=== PATIENT | male | born 1955 | race Caucasian/White ===

== ENCOUNTER 2020-02-11 18:39 | Inpatient (IN) ==
[2020-02-11 20:21] LABS: INR 1.9; Prothrombin Time 21.6 Seconds (9.4-12.1)
[2020-02-11 20:24] LABS: Activated Partial Thrombo Time 39.1 Seconds (26.0-36.0)
[2020-02-11 20:34] LABS: Calcium 8.1 mg/dL (8.6-10.3)
[2020-02-11 20:39] LABS: Albumin 3.8 g/dL (3.5-5.7); Albumin/Globulin Ratio 1.1 (1.1-2.2); Bilirubin,Direct 0.1 mg/dL (0.0-0.2); Bilirubin,Indirect 0.3 mg/dL (0.0-1.0); Bilirubin,Total 0.4 mg/dL (0.3-1.0); Globulin 3.5 g/dL (2.4-3.5); Total Protein 7.3 g/dL (6.4-8.9); Troponin I 0.03 ng/mL (< 0.04)
[2020-02-11] MEDS: 0.9 % Sodium Chloride 1,000 ML IVC SCH (21:06)
[2020-02-11 21:18] LABS: Basophils % 0.2 %; Eosinophils # 0.1 K/mcL (0.0-0.6); Eosinophils % 2.1 %; Immature Granulocytes % 1.4 % (0-4); Lymphocytes # 1.1 K/mcL (0.6-4.6); Lymphocytes % 19.6 %; Mean Corpuscular HGB Conc 29.2 g/dL (31.6-35.5); Mean Corpuscular Hemoglobin 23.5 pg (28.0-33.3); Mean Corpuscular Volume 80.4 fL (83.0-100.0); Mean Platelet Volume 10.3 fL (9.4-12.4); Monocytes # 0.8 K/mcL (0.0-1.3); Monocytes % 14.4 %; Neutrophils # 3.6 K/mcL (1.6-8.9); Nucleated Red Blood Cells 0.3 /100 WBC (0); Platelet Count 237 K/mcL (140-400); Red Blood Count 1.79 M/mcL (4.19-5.50); Segmented Neutrophils % 62.3 %; White Blood Count 5.8 K/mcL (4.3-11.1)
[2020-02-11 21:20] LABS: Hematocrit 14.4 % (37.5-50.1); Hemoglobin 4.2 g/dL (12.9-16.9)
[2020-02-11] MEDS ORDERED: 0.9 % Sodium Chloride 500 ML ONE (22:40)
[2020-02-11] MEDS ORDERED: Pantoprazole 80 MG in 0.9 % Sodium Chloride 50 ML IVPB ONE (23:02)
[2020-02-12] MEDS ORDERED: Acetaminophen 325 MG TABLET PO PRN (01:16)
[2020-02-12] MEDS ORDERED: Ondansetron ODT 4 MG TAB.RAPDIS SL PRN (01:16)
[2020-02-12] MEDS ORDERED: Naloxone 0.4 MG/ML INJ IVP PRN (01:16)
[2020-02-12] MEDS ORDERED: *HR* Dextrose 50 % in Water (Vial) 50 ML VIAL IVP PRN (01:30)
[2020-02-12] MEDS ORDERED: Dextrose Gel 15 GM/37.5 ML TUBE PO PRN ×2 (01:30)
[2020-02-12] MEDS ORDERED: 0.9 % Sodium Chloride w KCl 20 MEQ/1,000 ML MLS IVC SCH (01:30)
[2020-02-12] MEDS ORDERED: D5% in Water 1,000 ML IVC PRN (01:30)
[2020-02-12] MEDS ORDERED: 0.9 % Sodium Chloride 250 ML ONE (02:51)
[2020-02-12] MEDS ORDERED: Pantoprazole 40 MG VIAL IVP SCH (06:00)
[2020-02-12] MEDS ORDERED: 0.9 % Sodium Chloride 1,000 ML IVC SCH (06:15)
[2020-02-12] MEDS: Insulin LISPRO 300 UNITS/3 ML VIAL SUBQ SCH ×3 (07:33→17:34)
[2020-02-12 07:56] LABS: Activated Partial Thrombo Time 37.5 Seconds (26.0-36.0)
[2020-02-12 07:57] LABS: INR 1.9; Prothrombin Time 21.4 Seconds (9.4-12.1)
[2020-02-12 08:04] LABS: Magnesium 1.3 mg/dL (1.6-2.6); Phosphorous 4.6 mg/dL (2.7-4.5); Potassium 4.8 mEq/L (3.5-5.1)
[2020-02-12 08:07] LABS: Hematocrit 18.3 % (37.5-50.1); Mean Corpuscular HGB Conc 29.5 g/dL (31.6-35.5); Mean Corpuscular Hemoglobin 24.2 pg (28.0-33.3); Mean Corpuscular Volume 82.1 fL (83.0-100.0); Mean Platelet Volume 9.8 fL (9.4-12.4); Neutrophils # 2.5 K/mcL (1.6-8.9); Platelet Count 226 K/mcL (140-400); Red Blood Count 2.23 M/mcL (4.19-5.50); Red Cell Distribution Width 17.8 % (11.5-14.5); White Blood Count 4.4 K/mcL (4.3-11.1)
[2020-02-12 08:15] LABS: Hemoglobin 5.4 g/dL (12.9-16.9)
[2020-02-12] MEDS: Pantoprazole 40 MG VIAL IVP SCH ×2 (08:20→17:38)
[2020-02-12] MEDS ORDERED: Bumetanide 1 MG/4 ML VIAL IVP ONE (08:48)
[2020-02-12] MEDS ORDERED: Perflutren Lipid Microsphere 1.3 ML in 0.9 % Sodium Chloride 8.7 ML IVP PRN (08:54)
[2020-02-12 09:02] LABS: Basophils # 0.1 K/mcL (0.0-0.2); Eosinophils # 0.3 K/mcL (0.0-0.6); Lymphocytes # 0.8 K/mcL (0.6-4.6); Monocytes # 0.8 K/mcL (0.0-1.3); Platelet Estimate Normal (Normal)
[2020-02-12 09:03] LABS: Anisocytosis 2+ (Not Present); Hypochromasia Present (Not Present)
[2020-02-12 10:17] LABS: Bilirubin,Urine Negative (Negative); Blood,Urine Negative (Negative); Clarity,Urine Clear (Clear); Color,Urine Light-Yellow (Yellow); Glucose,Urine (UA) Normal (Normal); Ketones,Urine Negative (Negative); Leukocyte Esterase,Urine Negative (Negative); Nitrite,Urine Negative (Negative); Protein,Urine Negative (Neg-Trace); Specific Gravity,Urine 1.011 (1.010-1.025); Urobilinogen,Urine Normal (Normal)
[2020-02-12] MEDS ORDERED: 0.9 % Sodium Chloride 500 ML ONE (10:26)
[2020-02-12 11:51] LABS: Uric Acid 13.1 mg/dL (2.3-7.6)
[2020-02-12] MEDS ORDERED: *HR* OxyCODONE/APAP 5/325 TABLET PO ONE (12:17)
[2020-02-12 13:50] LABS: Protein/Creatinine Ratio,Urine 0.13 mg/mg (0.00-0.20); Sodium, Urine 22.8 mEq/L
[2020-02-12] MEDS ORDERED: Lidocaine -MPF 2% 2 ML VIAL ONE (13:59)
[2020-02-12 15:47] LABS: Albumin 3.6 g/dL (3.5-5.7); Albumin/Globulin Ratio 1.1 (1.1-2.2); Bilirubin,Total 1.1 mg/dL (0.3-1.0); Calcium 8.3 mg/dL (8.6-10.3); Globulin 3.2 g/dL (2.4-3.5); Potassium 4.5 mEq/L (3.5-5.1); Total Protein 6.8 g/dL (6.4-8.9)
[2020-02-12 15:49] LABS: Hematocrit 19.7 % (37.5-50.1)
[2020-02-12 16:01] LABS: Hemoglobin 5.9 g/dL (12.9-16.9)
[2020-02-12 16:13] LABS: Hepatitis B Surface Antigen Nonreactive (Nonreactive)
[2020-02-12 16:44] LABS: Hepatitis B Core IgM Nonreactive (Nonreactive)
[2020-02-12 16:46] LABS: Hepatitis A Antibody IgM Nonreactive (Nonreactive)
[2020-02-12 16:47] LABS: Hepatitis C Virus Antibody Nonreactive (Nonreactive)
[2020-02-12] MEDS: Metoprolol XL (24 HR) Succ 50 MG TAB.ER.24H PO SCH (20:22)
[2020-02-12] MEDS: *HR* OxyCODONE/APAP 5/325 TABLET PO PRN (20:22)
[2020-02-12] MEDS: Gabapentin 300 MG CAPSULE PO SCH (20:23)
[2020-02-12] MEDS: polyethylene glycoL 3350 17 GM POWD.PACK PO SCH (20:23)
[2020-02-13 02:51] LABS: Basophils % 0.4 %; Eosinophils # 0.2 K/mcL (0.0-0.6); Hematocrit 20.1 % (37.5-50.1); Hemoglobin 6.1 g/dL (12.9-16.9); Immature Granulocytes % 0.7 % (0-4); Lymphocytes # 0.9 K/mcL (0.6-4.6); Lymphocytes % 19.8 %; Mean Corpuscular HGB Conc 30.3 g/dL (31.6-35.5); Mean Corpuscular Hemoglobin 25.7 pg (28.0-33.3); Mean Corpuscular Volume 84.8 fL (83.0-100.0); Mean Platelet Volume 9.3 fL (9.4-12.4); Monocytes # 0.9 K/mcL (0.0-1.3); Monocytes % 18.9 %; Neutrophils # 2.6 K/mcL (1.6-8.9); Nucleated Red Blood Cells 0.4 /100 WBC (0); Platelet Count 214 K/mcL (140-400); Red Blood Count 2.37 M/mcL (4.19-5.50); Red Cell Distribution Width 17.9 % (11.5-14.5); Segmented Neutrophils % 56.2 %; White Blood Count 4.6 K/mcL (4.3-11.1)
[2020-02-13 03:09] LABS: Calcium 8.3 mg/dL (8.6-10.3); Magnesium 1.6 mg/dL (1.6-2.6); Phosphorous 3.8 mg/dL (2.7-4.5); Potassium 4.2 mEq/L (3.5-5.1)
[2020-02-13 03:41] LABS: Hypochromasia Present (Not Present); Platelet Estimate Normal (Normal)
[2020-02-13] MEDS ORDERED: 0.9 % Sodium Chloride 250 ML ONE (03:46)
[2020-02-13] MEDS: Sucralfate 1 GM TABLET PO SCH ×5 (05:50→21:58)
[2020-02-13] MEDS: Insulin LISPRO 300 UNITS/3 ML VIAL SUBQ SCH ×3 (08:30→18:02)
[2020-02-13] MEDS: Metoprolol XL (24 HR) Succ 50 MG TAB.ER.24H PO SCH (08:48)
[2020-02-13] MEDS: Gabapentin 300 MG CAPSULE PO SCH ×3 (08:48→20:16)
[2020-02-13] MEDS: Pantoprazole 40 MG VIAL IVP SCH ×2 (08:49→18:03)
[2020-02-13] MEDS: polyethylene glycoL 3350 17 GM POWD.PACK PO SCH ×2 (08:49→20:17)
[2020-02-13] MEDS ORDERED: Bumetanide 1 MG TABLET PO SCH (09:00)
[2020-02-13] MEDS ORDERED: amLODIPine 5 MG TABLET PO SCH (09:00)
[2020-02-13] MEDS ORDERED: Ferumoxytol 510 MG in 0.9 % Sodium Chloride 100 ML IVPB ONE (10:49)
[2020-02-13] MEDS ORDERED: Albumin 25% 25gram/100mL 25 GM/100 ML IV.SOLN IVPB SCH (11:00)
[2020-02-13] MEDS ORDERED: Ondansetron 4 MG/2 ML VIAL ONE (12:57)
[2020-02-13] MEDS ORDERED: Furosemide 40 MG/4 ML VIAL ONE (12:58)
[2020-02-13] MEDS ORDERED: Bumetanide 1 MG/4 ML VIAL IVP ONE (13:00)
[2020-02-13 16:12] LABS: Hematocrit 25.6 % (37.5-50.1); Hemoglobin 7.7 g/dL (12.9-16.9)
[2020-02-13] MEDS: Bumetanide 1 MG/4 ML VIAL IVP SCH (18:02)
[2020-02-13] MEDS: *HR* OxyCODONE/APAP 5/325 TABLET PO PRN (18:32)
[2020-02-14 01:09] LABS: Basophils % 0.7 %; Eosinophils # 0.2 K/mcL (0.0-0.6); Eosinophils % 3.5 %; Hematocrit 23.8 % (37.5-50.1); Hemoglobin 7.3 g/dL (12.9-16.9); Immature Granulocytes % 0.9 % (0-4); Lymphocytes # 0.6 K/mcL (0.6-4.6); Lymphocytes % 13.1 %; Mean Corpuscular HGB Conc 30.7 g/dL (31.6-35.5); Mean Corpuscular Hemoglobin 25.7 pg (28.0-33.3); Mean Corpuscular Volume 83.8 fL (83.0-100.0); Mean Platelet Volume 10.1 fL (9.4-12.4); Monocytes # 0.7 K/mcL (0.0-1.3); Monocytes % 14.2 %; Neutrophils # 3.1 K/mcL (1.6-8.9); Platelet Count 194 K/mcL (140-400); Red Blood Count 2.84 M/mcL (4.19-5.50); Red Cell Distribution Width 17.5 % (11.5-14.5); Segmented Neutrophils % 67.6 %; White Blood Count 4.6 K/mcL (4.3-11.1)
[2020-02-14 01:11] LABS: Calcium 8.1 mg/dL (8.6-10.3); Magnesium 1.6 mg/dL (1.6-2.6); Phosphorous 3.6 mg/dL (2.7-4.5); Potassium 4.5 mEq/L (3.5-5.1)
[2020-02-14] MEDS: 0.9 % Sodium Chloride 1,000 ML IVC SCH (05:07)
[2020-02-14] MEDS: Pantoprazole 40 MG VIAL IVP SCH ×2 (05:12→17:12)
[2020-02-14] MEDS: Insulin LISPRO 300 UNITS/3 ML VIAL SUBQ SCH ×3 (08:36→17:13)
[2020-02-14] MEDS: Bumetanide 1 MG/4 ML VIAL IVP SCH ×2 (08:36→17:12)
[2020-02-14] MEDS: Sucralfate 1 GM TABLET PO SCH ×4 (08:36→20:44)
[2020-02-14] MEDS: polyethylene glycoL 3350 17 GM POWD.PACK PO SCH ×2 (08:37→20:46)
[2020-02-14] MEDS: Gabapentin 300 MG CAPSULE PO SCH ×3 (08:37→20:44)
[2020-02-14] MEDS: *HR* OxyCODONE/APAP 5/325 TABLET PO PRN ×2 (08:49→17:12)
[2020-02-14] MEDS: amLODIPine 5 MG TABLET PO SCH (10:56)
[2020-02-14] MEDS ORDERED: 0.9 % Sodium Chloride 1,000 ML ONE (11:20)
[2020-02-14] MEDS ORDERED: Tolvaptan 15 MG TABLET PO ONE (12:46)
[2020-02-14 15:57] LABS: Hematocrit 25.6 % (37.5-50.1); Hemoglobin 7.8 g/dL (12.9-16.9)
[2020-02-15] MEDS: Pantoprazole 40 MG VIAL IVP SCH (05:30)
[2020-02-15 08:15] VITALS: BP 129/61
[2020-02-15 08:32] LABS: Basophils % 0.4 %; Eosinophils # 0.2 K/mcL (0.0-0.6); Eosinophils % 2.9 %; Hematocrit 25.5 % (37.5-50.1); Hemoglobin 7.6 g/dL (12.9-16.9); Immature Granulocytes % 0.4 % (0-4); Lymphocytes # 0.6 K/mcL (0.6-4.6); Mean Corpuscular HGB Conc 29.8 g/dL (31.6-35.5); Mean Corpuscular Hemoglobin 25.6 pg (28.0-33.3); Mean Corpuscular Volume 85.9 fL (83.0-100.0); Mean Platelet Volume 9.1 fL (9.4-12.4); Monocytes # 0.9 K/mcL (0.0-1.3); Monocytes % 16.2 %; Neutrophils # 3.9 K/mcL (1.6-8.9); Platelet Count 166 K/mcL (140-400); Red Blood Count 2.97 M/mcL (4.19-5.50); Red Cell Distribution Width 18.9 % (11.5-14.5); Segmented Neutrophils % 70.1 %; White Blood Count 5.5 K/mcL (4.3-11.1)
[2020-02-15 08:37] LABS: Calcium 8.5 mg/dL (8.6-10.3); Magnesium 1.6 mg/dL (1.6-2.6); Phosphorous 3.1 mg/dL (2.7-4.5); Potassium 4.2 mEq/L (3.5-5.1)
[2020-02-15] MEDS: Insulin LISPRO 300 UNITS/3 ML VIAL SUBQ SCH ×2 (08:40→11:36)
[2020-02-15] MEDS: amLODIPine 5 MG TABLET PO SCH (08:49)
[2020-02-15] MEDS: *HR* OxyCODONE/APAP 5/325 TABLET PO PRN (08:49)
[2020-02-15] MEDS: Sucralfate 1 GM TABLET PO SCH ×2 (08:49→11:35)
[2020-02-15] MEDS: Gabapentin 300 MG CAPSULE PO SCH (08:49)
[2020-02-15] MEDS: Bumetanide 1 MG/4 ML VIAL IVP SCH (08:50)
[2020-02-15] MEDS: polyethylene glycoL 3350 17 GM POWD.PACK PO SCH (08:51)
[2020-02-16 06:24] LABS: ANA IgG by ELISA NONE DETECTED (None Detected)
[2020-02-16 06:28] LABS: F-Actin (sm muscle) Ab IgG 20 Units (0-19)
[2020-02-16 06:30] LABS: Serine Protease-3 Antibody 18 AU/mL (0-19)
[2020-02-17 10:17] LABS: Smooth Muscle Ab Titer IgG 1:20 (<1:20)
== END 2020-02-15 12:06 | disposition home or self-care (01) | DRG 378 ==
LOC: 3ANU 18:39 → EMEROOARM 18:39 → 3ANU 02-12 00:06
PROVIDERS: ADMIT Student in an Organized Health Care Education/Training Program; ATTEND Student in an Organized Health Care Education/Training Program
PROC: ENDOEBX (2020-02-12 08:30)

== ENCOUNTER 2020-03-09 16:41 | Inpatient (IN) ==
[2020-03-09] MEDS ORDERED: 0.9 % Sodium Chloride 1,000 ML IVC ONE (17:28)
[2020-03-09] MEDS ORDERED: Pantoprazole 40 MG VIAL IVP ONE (17:28)
[2020-03-09] MEDS ORDERED: Isovue-370 500 ML BOTTLE IVP ONE (17:29)
[2020-03-09 18:36] LABS: Basophils % 0.4 %; Eosinophils # 0.2 K/mcL (0.0-0.6); Eosinophils % 3.3 %; Hematocrit 21.6 % (37.5-50.1); Hemoglobin 6.2 g/dL (12.9-16.9); Immature Granulocytes % 0.4 % (0-4); Lymphocytes # 0.8 K/mcL (0.6-4.6); Mean Corpuscular HGB Conc 28.7 g/dL (31.6-35.5); Mean Corpuscular Hemoglobin 26.3 pg (28.0-33.3); Mean Corpuscular Volume 91.5 fL (83.0-100.0); Mean Platelet Volume 9.8 fL (9.4-12.4); Monocytes # 0.8 K/mcL (0.0-1.3); Monocytes % 14.4 %; Neutrophils # 3.5 K/mcL (1.6-8.9); Platelet Count 250 K/mcL (140-400); Red Blood Count 2.36 M/mcL (4.19-5.50); Segmented Neutrophils % 66.5 %; White Blood Count 5.2 K/mcL (4.3-11.1)
[2020-03-09 18:44] LABS: Alanine Aminotransferase 11 Units/L (7-52); Albumin 3.7 g/dL (3.5-5.7); Albumin/Globulin Ratio 0.9 (1.1-2.2); Alkaline Phosphatase 85 Units/L (34-104); Aspartate Amino Transferase 24 Units/L (13-39); BUN/Creatinine Ratio 17 (6-26); Bilirubin,Total 0.4 mg/dL (0.3-1.0); Blood Urea Nitrogen 27 mg/dL (8-23); Calcium 8.3 mg/dL (8.6-10.3); Carbon Dioxide 29 mEq/L (23-29); Chloride 98 mEq/L (98-107); Glucose 94 mg/dL (70-105); Lipase 23 Units/L (11-82); Osmolality,Calculated 291 (280-300); Potassium 4.5 mEq/L (3.5-5.1); Sodium 138 mEq/L (136-145); Total Protein 7.7 g/dL (6.4-8.9); Troponin I < 0.03 ng/mL (< 0.04); eGFR For African Americans 53 (> 60); eGFR For Non-African Americans 44 (> 60)
[2020-03-09 18:55] LABS: Hypochromasia Present (Not Present); Platelet Estimate Normal (Normal)
[2020-03-09 20:05] LABS: INR 1.3; Prothrombin Time 14.8 Seconds (9.4-12.1)
[2020-03-09 20:10] LABS: Activated Partial Thrombo Time 33.3 Seconds (26.0-36.0)
[2020-03-09] MEDS ORDERED: 0.9 % Sodium Chloride 250 ML ONE (20:47)
[2020-03-09] MEDS ORDERED: Furosemide 20 MG/2 ML VIAL IVP ONE (22:18)
[2020-03-09] MEDS ORDERED: Ondansetron 4 MG/2 ML VIAL IVP PRN (22:36)
[2020-03-09] MEDS ORDERED: Naloxone 0.4 MG/ML INJ IVP PRN (22:36)
[2020-03-09 23:20] LABS: Influenza A PCR Negative (Negative); Influenza B PCR Negative (Negative); Resp. Syncytial Virus PCR Negative (Negative)
[2020-03-09 23:21] LABS: SARS-CoV-2 by PCR (In House) Negative (Negative)
[2020-03-10] MEDS ORDERED: D5% in Water 1,000 ML IVC PRN (02:01)
[2020-03-10] MEDS ORDERED: Dextrose Gel 15 GM/37.5 ML TUBE PO PRN ×2 (02:01)
[2020-03-10] MEDS ORDERED: *HR* Dextrose 50 % in Water (Vial) 50 ML VIAL IVP PRN (02:01)
[2020-03-10 02:13] LABS: Mean Platelet Volume 9.4 fL (9.4-12.4)
[2020-03-10 02:14] LABS: Basophils % 0.8 %; Eosinophils # 0.2 K/mcL (0.0-0.6); Eosinophils % 3.7 %; Hematocrit 21.8 % (37.5-50.1); Hemoglobin 6.5 g/dL (12.9-16.9); Immature Granulocytes % 1.2 % (0-4); Lymphocytes % 15.2 %; Mean Corpuscular HGB Conc 29.8 g/dL (31.6-35.5); Mean Corpuscular Hemoglobin 26.4 pg (28.0-33.3); Mean Corpuscular Volume 88.6 fL (83.0-100.0); Monocytes # 0.9 K/mcL (0.0-1.3); Monocytes % 17.6 %; Platelet Count 237 K/mcL (140-400); Red Blood Count 2.46 M/mcL (4.19-5.50); Red Cell Distribution Width 18.4 % (11.5-14.5); Segmented Neutrophils % 61.5 %; White Blood Count 4.9 K/mcL (4.3-11.1)
[2020-03-10 02:18] LABS: Lymphocytes # 0.7 K/mcL (0.6-4.6)
[2020-03-10 02:28] LABS: Alanine Aminotransferase 12 Units/L (7-52); Albumin 3.6 g/dL (3.5-5.7); Albumin/Globulin Ratio 0.9 (1.1-2.2); Alkaline Phosphatase 92 Units/L (34-104); Aspartate Amino Transferase 20 Units/L (13-39); BUN/Creatinine Ratio 16 (6-26); Bilirubin,Total 0.5 mg/dL (0.3-1.0); Blood Urea Nitrogen 27 mg/dL (8-23); Calcium 8.4 mg/dL (8.6-10.3); Carbon Dioxide 31 mEq/L (23-29); Chloride 99 mEq/L (98-107); Globulin 3.9 g/dL (2.4-3.5); Glucose 103 mg/dL (70-105); Osmolality,Calculated 293 (280-300); Potassium 4.1 mEq/L (3.5-5.1); Sodium 139 mEq/L (136-145); Total Protein 7.5 g/dL (6.4-8.9); Troponin I < 0.03 ng/mL (< 0.04); eGFR For African Americans 49 (> 60); eGFR For Non-African Americans 40 (> 60)
[2020-03-10] MEDS: Furosemide 40 MG/4 ML VIAL IVP SCH ×3 (03:08→16:55)
[2020-03-10] MEDS ORDERED: 0.9 % Sodium Chloride 250 ML ONE (03:48)
[2020-03-10 04:59] LABS: Protein/Creatinine Ratio,Urine 0.42 mg/mg (0.00-0.20); Sodium, Urine 34.4 mEq/L
[2020-03-10] MEDS: Insulin LISPRO 300 UNITS/3 ML VIAL SUBQ SCH ×3 (05:21→17:55)
[2020-03-10] MEDS: Pantoprazole 40 MG VIAL IVP SCH ×2 (05:22→16:57)
[2020-03-10] MEDS ORDERED: *HR* Heparin 5,000 UNIT/ML VIAL SQ SCH (06:00)
[2020-03-10] MEDS ORDERED: 0.9 % Sodium Chloride 250 ML IVC SCH (08:15)
[2020-03-10] MEDS: *HR* OxyCODONE/APAP 5/325 TABLET PO PRN ×2 (10:14→22:37)
[2020-03-10] MEDS: amLODIPine 5 MG TABLET PO SCH (10:16)
[2020-03-10] MEDS: Metoprolol XL (24 HR) Succ 50 MG TAB.ER.24H PO SCH ×2 (10:18→22:35)
[2020-03-10] MEDS: Sucralfate 1 GM TABLET PO SCH ×3 (11:33→22:34)
[2020-03-10 13:39] LABS: % Iron Saturation 4 % (20-55); Ferritin 43 ng/mL (20-250); Iron 17 mcg/dL (65-175); Transferrin 297 mg/dL (203-362)
[2020-03-10] MEDS ORDERED: Iron Sucrose Complex 250 MG in 0.9 % Sodium Chloride 250 ML IVPB SCH (14:45)
[2020-03-10] MEDS ORDERED: Nitroglycerin 0.4 MG TAB.SUBL SL PRN (20:47)
[2020-03-11] MEDS: Insulin LISPRO 300 UNITS/3 ML VIAL SUBQ SCH ×4 (01:55→18:14)
[2020-03-11] MEDS: Pantoprazole 40 MG VIAL IVP SCH ×2 (06:31→16:23)
[2020-03-11] MEDS: *HR* OxyCODONE/APAP 5/325 TABLET PO PRN (10:00)
[2020-03-11] MEDS: Metoprolol XL (24 HR) Succ 50 MG TAB.ER.24H PO SCH (10:01)
[2020-03-11] MEDS: amLODIPine 5 MG TABLET PO SCH (10:01)
[2020-03-11] MEDS: Furosemide 40 MG/4 ML VIAL IVP SCH ×2 (10:03→16:24)
[2020-03-11] MEDS: Sucralfate 1 GM TABLET PO SCH ×3 (10:03→16:23)
[2020-03-11 10:18] LABS: Basophils % 0.8 %; Eosinophils # 0.2 K/mcL (0.0-0.6); Eosinophils % 4.8 %; Hematocrit 28.2 % (37.5-50.1); Immature Granulocytes % 0.3 % (0-4); Lymphocytes # 0.5 K/mcL (0.6-4.6); Lymphocytes % 12.8 %; Mean Corpuscular HGB Conc 30.5 g/dL (31.6-35.5); Mean Corpuscular Hemoglobin 26.9 pg (28.0-33.3); Mean Corpuscular Volume 88.1 fL (83.0-100.0); Mean Platelet Volume 9.5 fL (9.4-12.4); Monocytes # 0.6 K/mcL (0.0-1.3); Monocytes % 13.8 %; Neutrophils # 2.7 K/mcL (1.6-8.9); Platelet Count 233 K/mcL (140-400); Red Cell Distribution Width 18.5 % (11.5-14.5); Segmented Neutrophils % 67.5 %
[2020-03-11 10:23] LABS: Hemoglobin 8.6 g/dL (12.9-16.9)
[2020-03-11 10:31] LABS: BUN/Creatinine Ratio 16 (6-26); Blood Urea Nitrogen 23 mg/dL (8-23); Calcium 8.9 mg/dL (8.6-10.3); Carbon Dioxide 33 mEq/L (23-29); Chloride 98 mEq/L (98-107); Glucose 106 mg/dL (70-105); Osmolality,Calculated 290 (280-300); Sodium 138 mEq/L (136-145); eGFR For African Americans > 60 (> 60); eGFR For Non-African Americans 50 (> 60)
[2020-03-11 10:55] LABS: Folate 7.8 ng/mL (3.0-16.0)
[2020-03-11 16:53] LABS: Hematocrit 27.9 % (37.5-50.1); Hemoglobin 8.4 g/dL (12.9-16.9)
[2020-03-12 01:11] LABS: Hematocrit 27.7 % (37.5-50.1); Hemoglobin 8.2 g/dL (12.9-16.9); Mean Corpuscular HGB Conc 29.6 g/dL (31.6-35.5); Mean Corpuscular Volume 87.9 fL (83.0-100.0); Mean Platelet Volume 9.3 fL (9.4-12.4); Platelet Count 208 K/mcL (140-400); Red Blood Count 3.15 M/mcL (4.19-5.50); Red Cell Distribution Width 18.3 % (11.5-14.5); White Blood Count 3.9 K/mcL (4.3-11.1)
[2020-03-12 01:26] LABS: BUN/Creatinine Ratio 17 (6-26); Blood Urea Nitrogen 23 mg/dL (8-23); Calcium 8.4 mg/dL (8.6-10.3); Carbon Dioxide 33 mEq/L (23-29); Chloride 99 mEq/L (98-107); Glucose 134 mg/dL (70-105); Osmolality,Calculated 292 (280-300); Potassium 3.8 mEq/L (3.5-5.1); Sodium 138 mEq/L (136-145); eGFR For African Americans > 60 (> 60); eGFR For Non-African Americans 52 (> 60)
[2020-03-12] MEDS: Metoprolol XL (24 HR) Succ 50 MG TAB.ER.24H PO SCH ×3 (04:02→20:45)
[2020-03-12] MEDS: Sucralfate 1 GM TABLET PO SCH ×5 (04:02→20:45)
[2020-03-12] MEDS: Insulin LISPRO 300 UNITS/3 ML VIAL SUBQ SCH ×3 (04:03→13:07)
[2020-03-12] MEDS: Pantoprazole 40 MG VIAL IVP SCH (05:44)
[2020-03-12] MEDS: amLODIPine 5 MG TABLET PO SCH (08:17)
[2020-03-12] MEDS: Furosemide 40 MG/4 ML VIAL IVP SCH ×2 (08:18→17:13)
[2020-03-12] MEDS: *HR* OxyCODONE/APAP 5/325 TABLET PO PRN ×2 (08:30→20:50)
[2020-03-12] MEDS ORDERED: 0.9 % Sodium Chloride 1,000 ML IVC SCH (14:30)
[2020-03-12] MEDS: Spironolactone 25 MG TABLET PO SCH (15:30)
[2020-03-12] MEDS ORDERED: *HR* Propofol 200 MG/20 ML VIAL IVP ONE (17:01)
[2020-03-12] MEDS ORDERED: Lidocaine -MPF 2% 5 ML VIAL SQ ONE (17:01)
[2020-03-12] MEDS ORDERED: Insulin LISPRO 300 UNITS/3 ML VIAL SUBQ SCH (21:00)
[2020-03-13 05:37] LABS: Hematocrit 27.9 % (37.5-50.1); Hemoglobin 8.2 g/dL (12.9-16.9); Mean Corpuscular HGB Conc 29.4 g/dL (31.6-35.5); Mean Corpuscular Hemoglobin 26.3 pg (28.0-33.3); Mean Corpuscular Volume 89.4 fL (83.0-100.0); Mean Platelet Volume 9.3 fL (9.4-12.4); Platelet Count 212 K/mcL (140-400); Red Blood Count 3.12 M/mcL (4.19-5.50); Red Cell Distribution Width 18.2 % (11.5-14.5); White Blood Count 3.9 K/mcL (4.3-11.1)
[2020-03-13 05:56] LABS: BUN/Creatinine Ratio 14 (6-26); Blood Urea Nitrogen 18 mg/dL (8-23); Calcium 8.6 mg/dL (8.6-10.3); Carbon Dioxide 33 mEq/L (23-29); Chloride 99 mEq/L (98-107); Glucose 106 mg/dL (70-105); Osmolality,Calculated 288 (280-300); Potassium 3.7 mEq/L (3.5-5.1); Sodium 138 mEq/L (136-145); eGFR For African Americans > 60 (> 60); eGFR For Non-African Americans 57 (> 60)
[2020-03-13 07:40] VITALS: BP 123/73
[2020-03-13] MEDS: Insulin LISPRO 300 UNITS/3 ML VIAL SUBQ SCH ×2 (07:51→12:22)
[2020-03-13] MEDS: amLODIPine 5 MG TABLET PO SCH (07:53)
[2020-03-13] MEDS: Metoprolol XL (24 HR) Succ 50 MG TAB.ER.24H PO SCH (07:53)
[2020-03-13] MEDS: Spironolactone 25 MG TABLET PO SCH (07:53)
[2020-03-13] MEDS: Sucralfate 1 GM TABLET PO SCH ×3 (07:53→15:52)
[2020-03-13] MEDS: Furosemide 40 MG/4 ML VIAL IVP SCH (07:54)
[2020-03-13] MEDS: *HR* OxyCODONE/APAP 5/325 TABLET PO PRN (08:04)
== END 2020-03-13 19:30 | disposition home health service (06) | DRG 291 ==
LOC: 3ANU 16:41 → EMEROOARM 16:41 → SUATTDRO 23:23 → 3ANU 03-10 00:20
PROVIDERS: ADMIT Internal Medicine; ATTEND Family Medicine

== ENCOUNTER 2020-03-20 17:51 | Inpatient (IN) ==
[2020-03-20] MEDS ORDERED: Furosemide 40 MG/4 ML VIAL IVP ONE (18:27)
[2020-03-20 18:46] LABS: Hematocrit 26.2 % (37.5-50.1); Hemoglobin 7.3 g/dL (12.9-16.9); Mean Corpuscular HGB Conc 27.9 g/dL (31.6-35.5)
[2020-03-20 18:48] LABS: Basophils % 0.7 %; Eosinophils # 0.2 K/mcL (0.0-0.6); Eosinophils % 5.3 %; Immature Granulocytes % 0.2 % (0-4); Immature Platelets 3.6 % (1.1-6.1); Lymphocytes # 0.6 K/mcL (0.6-4.6); Lymphocytes % 14.7 %; Mean Corpuscular Hemoglobin 25.8 pg (28.0-33.3); Mean Corpuscular Volume 92.6 fL (83.0-100.0); Mean Platelet Volume 10.5 fL (9.4-12.4); Monocytes # 0.6 K/mcL (0.0-1.3); Monocytes % 14.7 %; Neutrophils # 2.7 K/mcL (1.6-8.9); Platelet Count 129 K/mcL (140-400); Red Blood Count 2.83 M/mcL (4.19-5.50); Red Cell Distribution Width 18.7 % (11.5-14.5); Segmented Neutrophils % 64.4 %; White Blood Count 4.2 K/mcL (4.3-11.1)
[2020-03-20 19:27] LABS: Hypochromasia Present (Not Present)
[2020-03-20 19:28] LABS: Platelet Estimate Slight Decrease (Normal)
[2020-03-20] MEDS ORDERED: *HR* Dextrose 50 % in Water (Vial) 50 ML VIAL IVP PRN (21:00)
[2020-03-20] MEDS ORDERED: Naloxone 0.4 MG/ML INJ IVP PRN (21:00)
[2020-03-20] MEDS ORDERED: Dextrose Gel 15 GM/37.5 ML TUBE PO PRN ×2 (21:00)
[2020-03-20] MEDS ORDERED: D5% in Water 1,000 ML IVC PRN (21:00)
[2020-03-20] MEDS ORDERED: Acetaminophen 325 MG TABLET PO PRN (21:00)
[2020-03-20] MEDS: Gabapentin 300 MG CAPSULE PO SCH (22:09)
[2020-03-20] MEDS: Sucralfate 1 GM TABLET PO SCH (22:09)
[2020-03-20] MEDS: Metoprolol XL (24 HR) Succ 50 MG TAB.ER.24H PO SCH (22:10)
[2020-03-20] MEDS ORDERED: *HR* HYDROcodone/Acet 5/325 mg TABLET PO PRN (22:53)
[2020-03-21] MEDS: *HR* OxyCODONE/APAP 5/325 TABLET PO PRN ×3 (00:07→14:24)
[2020-03-21] MEDS: Insulin LISPRO 300 UNITS/3 ML VIAL SUBQ SCH ×5 (00:59→22:16)
[2020-03-21 02:17] LABS: Immature Granulocytes % 0.3 % (0-4)
[2020-03-21 02:18] LABS: Basophils % 0.8 %; Eosinophils # 0.3 K/mcL (0.0-0.6); Eosinophils % 6.6 %; Hematocrit 24.2 % (37.5-50.1); Lymphocytes # 0.6 K/mcL (0.6-4.6); Lymphocytes % 16.9 %; Mean Corpuscular HGB Conc 28.9 g/dL (31.6-35.5); Mean Corpuscular Hemoglobin 26.6 pg (28.0-33.3); Mean Platelet Volume 9.7 fL (9.4-12.4); Monocytes # 0.7 K/mcL (0.0-1.3); Neutrophils # 2.1 K/mcL (1.6-8.9); Platelet Count 119 K/mcL (140-400); Red Blood Count 2.63 M/mcL (4.19-5.50); Red Cell Distribution Width 18.7 % (11.5-14.5); Segmented Neutrophils % 56.4 %; White Blood Count 3.8 K/mcL (4.3-11.1)
[2020-03-21 02:32] LABS: Alanine Aminotransferase 8 Units/L (7-52); Albumin 3.4 g/dL (3.5-5.7); Albumin/Globulin Ratio 0.9 (1.1-2.2); Alkaline Phosphatase 87 Units/L (34-104); Aspartate Amino Transferase 15 Units/L (13-39); BUN/Creatinine Ratio 14 (6-26); Bilirubin,Total 0.6 mg/dL (0.3-1.0); Blood Urea Nitrogen 19 mg/dL (8-23); Calcium 8.9 mg/dL (8.6-10.3); Carbon Dioxide 32 mEq/L (23-29); Chloride 100 mEq/L (98-107); Glucose 95 mg/dL (70-105); Osmolality,Calculated 286 (280-300); Potassium 4.2 mEq/L (3.5-5.1); Sodium 137 mEq/L (136-145); Total Protein 7.2 g/dL (6.4-8.9); eGFR For African Americans > 60 (> 60); eGFR For Non-African Americans 52 (> 60)
[2020-03-21 02:33] LABS: Globulin 3.8 g/dL (2.4-3.5)
[2020-03-21 02:43] LABS: Anisocytosis 1+ (Not Present); Hypochromasia Present (Not Present); Platelet Estimate Slight Decrease (Normal); Poikilocytosis 1+ (Not Present); Target Cells 1+ (Not Present)
[2020-03-21] MEDS: Sucralfate 1 GM TABLET PO SCH ×4 (08:15→22:20)
[2020-03-21] MEDS: amLODIPine 5 MG TABLET PO SCH (08:15)
[2020-03-21] MEDS: Gabapentin 300 MG CAPSULE PO SCH ×3 (08:15→22:19)
[2020-03-21] MEDS: Spironolactone 25 MG TABLET PO SCH (08:16)
[2020-03-21] MEDS: Metoprolol XL (24 HR) Succ 50 MG TAB.ER.24H PO SCH ×2 (08:16→22:19)
[2020-03-21] MEDS ORDERED: Bumetanide 1 MG TABLET PO SCH (09:00)
[2020-03-21] MEDS ORDERED: Furosemide 40 MG/4 ML VIAL IVP SCH (09:00)
[2020-03-21] MEDS ORDERED: 0.9 % Sodium Chloride 500 ML ONE (09:22)
[2020-03-21] MEDS: Furosemide 40 MG/4 ML VIAL IVP SCH (22:17)
[2020-03-22 01:54] LABS: Basophils % 0.6 %; Eosinophils # 0.3 K/mcL (0.0-0.6); Hematocrit 26.4 % (37.5-50.1); Hemoglobin 7.8 g/dL (12.9-16.9); Immature Granulocytes % 0.2 % (0-4); Lymphocytes # 0.7 K/mcL (0.6-4.6); Lymphocytes % 15.1 %; Mean Corpuscular HGB Conc 29.5 g/dL (31.6-35.5); Mean Corpuscular Hemoglobin 27.1 pg (28.0-33.3); Mean Corpuscular Volume 91.7 fL (83.0-100.0); Mean Platelet Volume 9.8 fL (9.4-12.4); Monocytes # 0.8 K/mcL (0.0-1.3); Neutrophils # 2.9 K/mcL (1.6-8.9); Platelet Count 132 K/mcL (140-400); Red Blood Count 2.88 M/mcL (4.19-5.50); Red Cell Distribution Width 18.5 % (11.5-14.5); Segmented Neutrophils % 61.1 %; White Blood Count 4.7 K/mcL (4.3-11.1)
[2020-03-22 02:03] LABS: Calcium 8.8 mg/dL (8.6-10.3); Potassium 4.3 mEq/L (3.5-5.1)
[2020-03-22] MEDS: *HR* OxyCODONE/APAP 5/325 TABLET PO PRN ×3 (02:31→20:47)
[2020-03-22] MEDS: Sucralfate 1 GM TABLET PO SCH ×4 (05:42→20:47)
[2020-03-22] MEDS: Insulin LISPRO 300 UNITS/3 ML VIAL SUBQ SCH ×4 (07:16→19:42)
[2020-03-22] MEDS: Gabapentin 300 MG CAPSULE PO SCH ×3 (08:14→20:46)
[2020-03-22] MEDS: amLODIPine 5 MG TABLET PO SCH (08:14)
[2020-03-22] MEDS: Metoprolol XL (24 HR) Succ 50 MG TAB.ER.24H PO SCH ×2 (08:14→20:47)
[2020-03-22] MEDS: Furosemide 40 MG/4 ML VIAL IVP SCH ×2 (08:15→20:47)
[2020-03-23 03:33] LABS: Basophils % 0.6 %; Red Cell Distribution Width 18.6 % (11.5-14.5)
[2020-03-23 03:35] LABS: Eosinophils # 0.3 K/mcL (0.0-0.6); Eosinophils % 5.3 %; Hematocrit 26.2 % (37.5-50.1); Hemoglobin 7.7 g/dL (12.9-16.9); Immature Granulocytes % 0.2 % (0-4); Lymphocytes # 0.6 K/mcL (0.6-4.6); Lymphocytes % 12.4 %; Mean Corpuscular HGB Conc 29.4 g/dL (31.6-35.5); Mean Corpuscular Hemoglobin 27.3 pg (28.0-33.3); Mean Corpuscular Volume 92.9 fL (83.0-100.0); Mean Platelet Volume 10.1 fL (9.4-12.4); Monocytes # 0.7 K/mcL (0.0-1.3); Monocytes % 14.8 %; Neutrophils # 3.3 K/mcL (1.6-8.9); Platelet Count 135 K/mcL (140-400); Red Blood Count 2.82 M/mcL (4.19-5.50); Segmented Neutrophils % 66.7 %; White Blood Count 4.9 K/mcL (4.3-11.1)
[2020-03-23 03:53] LABS: Anisocytosis 1+ (Not Present); Platelet Estimate Normal (Normal)
[2020-03-23 03:56] LABS: Potassium 4.3 mEq/L (3.5-5.1)
[2020-03-23] MEDS: Insulin LISPRO 300 UNITS/3 ML VIAL SUBQ SCH ×4 (07:45→20:02)
[2020-03-23] MEDS: Gabapentin 300 MG CAPSULE PO SCH ×3 (07:46→19:37)
[2020-03-23] MEDS: Sucralfate 1 GM TABLET PO SCH ×4 (07:48→19:37)
[2020-03-23] MEDS: amLODIPine 5 MG TABLET PO SCH (07:49)
[2020-03-23] MEDS: Metoprolol XL (24 HR) Succ 50 MG TAB.ER.24H PO SCH ×2 (07:50→19:37)
[2020-03-23] MEDS: Furosemide 40 MG/4 ML VIAL IVP SCH ×2 (07:51→19:38)
[2020-03-23] MEDS: *HR* OxyCODONE/APAP 5/325 TABLET PO PRN ×2 (07:56→17:06)
[2020-03-24 05:01] LABS: Basophils % 0.5 %; Eosinophils # 0.2 K/mcL (0.0-0.6); Eosinophils % 5.5 %; Hematocrit 25.8 % (37.5-50.1); Hemoglobin 7.5 g/dL (12.9-16.9); Immature Granulocytes % 0.2 % (0-4); Lymphocytes # 0.6 K/mcL (0.6-4.6); Lymphocytes % 13.8 %; Mean Corpuscular HGB Conc 29.1 g/dL (31.6-35.5); Mean Corpuscular Volume 92.8 fL (83.0-100.0); Mean Platelet Volume 10.8 fL (9.4-12.4); Monocytes # 0.7 K/mcL (0.0-1.3); Monocytes % 15.9 %; Neutrophils # 2.8 K/mcL (1.6-8.9); Platelet Count 157 K/mcL (140-400); Red Blood Count 2.78 M/mcL (4.19-5.50); Red Cell Distribution Width 18.8 % (11.5-14.5); Segmented Neutrophils % 64.1 %; White Blood Count 4.4 K/mcL (4.3-11.1)
[2020-03-24 05:20] LABS: Potassium 4.5 mEq/L (3.5-5.1)
[2020-03-24] MEDS: Insulin LISPRO 300 UNITS/3 ML VIAL SUBQ SCH ×4 (07:16→20:32)
[2020-03-24] MEDS: Furosemide 40 MG/4 ML VIAL IVP SCH ×3 (07:42→23:08)
[2020-03-24] MEDS: *HR* OxyCODONE/APAP 5/325 TABLET PO PRN ×2 (07:46→21:39)
[2020-03-24] MEDS: Gabapentin 300 MG CAPSULE PO SCH ×3 (07:47→20:31)
[2020-03-24] MEDS: Metoprolol XL (24 HR) Succ 50 MG TAB.ER.24H PO SCH ×2 (07:47→20:31)
[2020-03-24] MEDS: amLODIPine 5 MG TABLET PO SCH (07:47)
[2020-03-24] MEDS: Sucralfate 1 GM TABLET PO SCH ×4 (07:47→23:08)
[2020-03-24] MEDS: Albumin 25% 25gram/100mL 25 GM/100 ML IV.SOLN IVPB SCH ×2 (14:42→20:31)
[2020-03-24] MEDS ORDERED: Albumin 25% 25gram/100mL 25 GM/100 ML IV.SOLN IVPB SCH (17:30)
[2020-03-24] MEDS ORDERED: Furosemide 40 MG/4 ML VIAL IVP SCH (18:00)
[2020-03-25] MEDS: Albumin 25% 25gram/100mL 25 GM/100 ML IV.SOLN IVPB SCH ×3 (04:26→22:19)
[2020-03-25 05:20] LABS: Basophils % 0.5 %; Eosinophils # 0.2 K/mcL (0.0-0.6); Eosinophils % 4.4 %; Hematocrit 24.4 % (37.5-50.1); Hemoglobin 7.1 g/dL (12.9-16.9); Immature Granulocytes % 0.5 % (0-4); Lymphocytes # 0.6 K/mcL (0.6-4.6); Lymphocytes % 15.1 %; Mean Corpuscular HGB Conc 29.1 g/dL (31.6-35.5); Mean Corpuscular Volume 92.8 fL (83.0-100.0); Mean Platelet Volume 10.2 fL (9.4-12.4); Monocytes # 0.7 K/mcL (0.0-1.3); Monocytes % 17.4 %; Neutrophils # 2.4 K/mcL (1.6-8.9); Platelet Count 156 K/mcL (140-400); Red Blood Count 2.63 M/mcL (4.19-5.50); Red Cell Distribution Width 19.2 % (11.5-14.5); Segmented Neutrophils % 62.1 %; White Blood Count 3.9 K/mcL (4.3-11.1)
[2020-03-25 05:34] LABS: Potassium 4.4 mEq/L (3.5-5.1)
[2020-03-25 05:35] LABS: Anisocytosis 2+ (Not Present); Hypochromasia Present (Not Present)
[2020-03-25 05:36] LABS: Macrocytosis Present (Not Present); Microcytosis Present (Not Present); Platelet Estimate Normal (Normal); Poikilocytosis 1+ (Not Present); Target Cells 1+ (Not Present)
[2020-03-25 05:37] LABS: % Iron Saturation 7 % (20-55); Iron 23 mcg/dL (65-175); Transferrin 242 mg/dL (203-362)
[2020-03-25 06:00] LABS: Folate 6.3 ng/mL (3.0-16.0)
[2020-03-25] MEDS: Furosemide 40 MG/4 ML VIAL IVP SCH (06:24)
[2020-03-25] MEDS: Sucralfate 1 GM TABLET PO SCH ×4 (08:15→22:19)
[2020-03-25] MEDS: Gabapentin 300 MG CAPSULE PO SCH ×3 (08:15→19:59)
[2020-03-25] MEDS: Metoprolol XL (24 HR) Succ 50 MG TAB.ER.24H PO SCH ×2 (08:15→20:00)
[2020-03-25] MEDS: amLODIPine 5 MG TABLET PO SCH (08:15)
[2020-03-25] MEDS: Insulin LISPRO 300 UNITS/3 ML VIAL SUBQ SCH ×4 (08:16→19:58)
[2020-03-25] MEDS: *HR* OxyCODONE/APAP 5/325 TABLET PO PRN ×2 (08:20→20:04)
[2020-03-25] MEDS ORDERED: Ferumoxytol 510 MG in 0.9 % Sodium Chloride 100 ML IVPB ONE (10:00)
[2020-03-25] MEDS: Nystatin POWDER 30 GM BOTTLE TP SCH ×2 (11:30→20:00)
[2020-03-25] MEDS: Furosemide 240 MG in 0.9 % Sodium Chloride 96 ML IVC SCH (13:56)
[2020-03-26 01:00] LABS: Hematocrit 25.1 % (37.5-50.1); Hemoglobin 7.3 g/dL (12.9-16.9); Mean Corpuscular HGB Conc 29.1 g/dL (31.6-35.5); Mean Platelet Volume 10.5 fL (9.4-12.4); Platelet Count 167 K/mcL (140-400); Red Cell Distribution Width 19.5 % (11.5-14.5); White Blood Count 5.2 K/mcL (4.3-11.1)
[2020-03-26 01:10] LABS: Calcium 9.3 mg/dL (8.6-10.3); Potassium 4.8 mEq/L (3.5-5.1)
[2020-03-26] MEDS: Gabapentin 300 MG CAPSULE PO SCH ×3 (08:47→21:45)
[2020-03-26] MEDS: amLODIPine 5 MG TABLET PO SCH (08:47)
[2020-03-26] MEDS: Sucralfate 1 GM TABLET PO SCH ×4 (08:47→21:45)
[2020-03-26] MEDS: Metoprolol XL (24 HR) Succ 50 MG TAB.ER.24H PO SCH ×2 (08:48→21:45)
[2020-03-26] MEDS: *HR* OxyCODONE/APAP 5/325 TABLET PO PRN (08:48)
[2020-03-26] MEDS: Insulin LISPRO 300 UNITS/3 ML VIAL SUBQ SCH ×4 (08:48→21:36)
[2020-03-26] MEDS: Nystatin POWDER 30 GM BOTTLE TP SCH ×2 (08:49→21:45)
[2020-03-26] MEDS: Albumin 25% 25gram/100mL 25 GM/100 ML IV.SOLN IVPB SCH ×2 (17:15→23:38)
[2020-03-26] MEDS: Furosemide 240 MG in 0.9 % Sodium Chloride 96 ML IVC SCH (17:15)
[2020-03-26] MEDS: Spironolactone 25 MG TABLET PO SCH (22:02)
[2020-03-27 07:23] LABS: Hematocrit 25.2 % (37.5-50.1); Hemoglobin 7.2 g/dL (12.9-16.9); Mean Corpuscular HGB Conc 28.6 g/dL (31.6-35.5); Mean Corpuscular Hemoglobin 26.9 pg (28.0-33.3); Mean Platelet Volume 10.6 fL (9.4-12.4); Platelet Count 202 K/mcL (140-400); Red Blood Count 2.68 M/mcL (4.19-5.50); Red Cell Distribution Width 19.4 % (11.5-14.5); White Blood Count 6.6 K/mcL (4.3-11.1)
[2020-03-27] MEDS: Insulin LISPRO 300 UNITS/3 ML VIAL SUBQ SCH ×4 (07:37→20:03)
[2020-03-27 07:38] LABS: Calcium 9.4 mg/dL (8.6-10.3); Potassium 5.2 mEq/L (3.5-5.1)
[2020-03-27] MEDS: Sucralfate 1 GM TABLET PO SCH ×4 (08:14→20:05)
[2020-03-27] MEDS: *HR* OxyCODONE/APAP 5/325 TABLET PO PRN (08:14)
[2020-03-27] MEDS: Albumin 25% 25gram/100mL 25 GM/100 ML IV.SOLN IVPB SCH ×3 (08:15→22:54)
[2020-03-27] MEDS: Gabapentin 300 MG CAPSULE PO SCH ×3 (10:07→20:02)
[2020-03-27] MEDS: Metoprolol XL (24 HR) Succ 50 MG TAB.ER.24H PO SCH ×2 (10:07→20:02)
[2020-03-27] MEDS: amLODIPine 5 MG TABLET PO SCH (10:07)
[2020-03-27] MEDS: Nystatin POWDER 30 GM BOTTLE TP SCH ×2 (10:12→20:12)
[2020-03-27] MEDS ORDERED: Albumin 25% 25gram/100mL 25 GM/100 ML IV.SOLN IVPB SCH (16:17)
[2020-03-27] MEDS: Furosemide 240 MG in 0.9 % Sodium Chloride 96 ML IVC SCH (16:48)
[2020-03-28] MEDS ORDERED: *HR* Atropine Sulfate 1 MG/10 ML SYRINGE IVP ONE (03:27)
[2020-03-28 03:41] LABS: Mean Platelet Volume 10.3 fL (9.4-12.4); Segmented Neutrophils % 47.4 %
[2020-03-28 03:43] LABS: Basophils # 0.1 K/mcL (0.0-0.2); Basophils % 0.6 %; Eosinophils # 0.2 K/mcL (0.0-0.6); Eosinophils % 1.8 %; Hematocrit 25.3 % (37.5-50.1); Immature Granulocytes % 0.8 % (0-4); Lymphocytes # 2.8 K/mcL (0.6-4.6); Lymphocytes % 32.7 %; Mean Corpuscular HGB Conc 27.7 g/dL (31.6-35.5); Mean Corpuscular Hemoglobin 27.2 pg (28.0-33.3); Mean Corpuscular Volume 98.4 fL (83.0-100.0); Monocytes # 1.4 K/mcL (0.0-1.3); Monocytes % 16.7 %; Nucleated Red Blood Cells 1.1 /100 WBC (0); Platelet Count 183 K/mcL (140-400); Red Blood Count 2.57 M/mcL (4.19-5.50); Red Cell Distribution Width 19.7 % (11.5-14.5); White Blood Count 8.4 K/mcL (4.3-11.1)
[2020-03-28 04:00] LABS: Platelet Estimate Normal (Normal)
[2020-03-28 04:01] LABS: Anisocytosis 1+ (Not Present); Hypochromasia Present (Not Present); Poikilocytosis 1+ (Not Present); Polychromasia 1+ (Not Present)
[2020-03-28 04:02] LABS: Alanine Aminotransferase 8 Units/L (7-52); Albumin 4.3 g/dL (3.5-5.7); Albumin/Globulin Ratio 1.3 (1.1-2.2); Alkaline Phosphatase 83 Units/L (34-104); Aspartate Amino Transferase 14 Units/L (13-39); BUN/Creatinine Ratio 16 (6-26); Bilirubin,Total 0.9 mg/dL (0.3-1.0); Blood Urea Nitrogen 46 mg/dL (8-23); Calcium 11.2 mg/dL (8.6-10.3); Carbon Dioxide 28 mEq/L (23-29); Chloride 100 mEq/L (98-107); Globulin 3.2 g/dL (2.4-3.5); Glucose 163 mg/dL (70-105); Magnesium 3.3 mg/dL (1.6-2.6); Osmolality,Calculated 305 (280-300); Potassium 4.5 mEq/L (3.5-5.1); Sodium 140 mEq/L (136-145); Total Protein 7.5 g/dL (6.4-8.9); eGFR For African Americans 27 (> 60); eGFR For Non-African Americans 23 (> 60)
[2020-03-28 04:03] LABS: Troponin I < 0.03 ng/mL (< 0.04)
[2020-03-28] MEDS ORDERED: Artificial Tears SOLN 15 ML BOTTLE BOTH EYES PRN (04:29)
[2020-03-28 04:36] LABS: ABG Base Excess 1 mEq/L (-2 to 3); ABG HCO3 30 mEq/L (21-27); ABG Oxygen Saturation 75 % (95-98); ABG PCO2 74 mmHg (35-45); ABG PH 7.21 pH Units (7.32-7.45); ABG PO2 50 mmHg (85-104); ABG TCO2 32 mEq/L (20-26); Blood Gas Modality VC; Blood Gas VT 550 cc
[2020-03-28] MEDS: FentaNYL (PF) 1,000 MCG/100 ML IV.SOLN IVC SCH ×2 (04:36→14:11)
[2020-03-28] MEDS ORDERED: Norepinephrine 4 MG/254 ML IV.SOLN IVC SCH (04:45)
[2020-03-28] MEDS: Phenylephrine 10 MG in 0.9 % Sodium Chloride 250 ML IVC SCH ×3 (05:15→08:32)
[2020-03-28 05:33] LABS: ABG Base Excess 5 mEq/L (-2 to 3); ABG HCO3 31 mEq/L (21-27); ABG Oxygen Saturation 99 % (95-98); ABG PCO2 53 mmHg (35-45); ABG PH 7.37 pH Units (7.32-7.45); ABG PO2 140 mmHg (85-104); ABG TCO2 32 mEq/L (20-26); Blood Gas Modality VC; Blood Gas VT 550 cc
[2020-03-28] MEDS: Insulin LISPRO 300 UNITS/3 ML VIAL SUBQ SCH ×4 (07:37→20:06)
[2020-03-28] MEDS: Artificial Tears SOLN 15 ML BOTTLE BOTH EYES SCH ×4 (08:05→20:06)
[2020-03-28] MEDS: Sucralfate 1 GM TABLET PO SCH (08:51)
[2020-03-28] MEDS: Albumin 25% 25gram/100mL 25 GM/100 ML IV.SOLN IVPB SCH ×2 (08:51→15:42)
[2020-03-28] MEDS: Gabapentin 300 MG CAPSULE PO SCH ×3 (08:56→20:04)
[2020-03-28] MEDS: Metoprolol XL (24 HR) Succ 50 MG TAB.ER.24H PO SCH ×2 (08:57→20:05)
[2020-03-28] MEDS: Chlorhexidine Rinse 15 ML MOUTHWASH MM SCH ×2 (08:57→20:04)
[2020-03-28] MEDS: Nystatin POWDER 30 GM BOTTLE TP SCH ×4 (08:57→23:52)
[2020-03-28] MEDS: Phenylephrine 50 MG in 0.9 % Sodium Chloride 250 ML IVC SCH ×3 (09:51→23:45)
[2020-03-28 10:22] LABS: Adenovirus Not Detected (Not Detect); Bordetella Pertussis Not Detected (Not Detect); Chlamydophila pneumoniae Not Detected (Not Detect); Coronavirus 229E Not Detected (Not Detect); Coronavirus HKU1 Not Detected (Not Detect); Coronavirus NL63 Not Detected (Not Detect); Coronavirus OC43 Not Detected (Not Detect); Human Metapneumovirus Not Detected (Not Detect); Human Rhinovirus/Enterovirus Not Detected (Not Detect); Influenza A Subtype 2009 H1 Not Detected (Not Detect); Influenza B Not Detected (Not Detect); Mycoplasma pneumoniae Not Detected (Not Detect); Parainfluenza Virus 1 Not Detected (Not Detect); Parainfluenza Virus 2 Not Detected (Not Detect); Parainfluenza Virus 3 Not Detected (Not Detect); Parainfluenza Virus 4 Not Detected (Not Detect); Respiratory Syncytial Virus Not Detected (Not Detect); SARS-CoV-2 Not Detected (Not Detect)
[2020-03-28] MEDS ORDERED: Perflutren Lipid Microsphere 1.3 ML in 0.9 % Sodium Chloride 8.7 ML IVP PRN (11:33)
[2020-03-28] MEDS ORDERED: Ipratropium/Albuterol Neb 3 ML IH PRN (11:41)
[2020-03-28] MEDS ORDERED: *HR* Magnesium Sulfate 2 GM/50 ML PIGGYBACK IVPB ONE (11:44)
[2020-03-28] MEDS ORDERED: *HR* EPINEPHrine 1 MG/10 ML SYRINGE IVP ONE (11:44)
[2020-03-28] MEDS: Pantoprazole 40 MG VIAL IVP SCH (11:58)
[2020-03-28] MEDS: Azithromycin 500 MG in 0.9 % Sodium Chloride 250 ML IVPB SCH (12:02)
[2020-03-28] MEDS: Piperacillin/Tazobactam 3.375 GM in 0.9 % Sodium Chloride Mini Bag 100 ML IVPB SCH ×2 (12:05→20:05)
[2020-03-28 12:20] LABS: Calcium 9.6 mg/dL (8.6-10.3); Potassium 4.6 mEq/L (3.5-5.1)
[2020-03-28 12:27] LABS: Troponin I 0.04 ng/mL (< 0.04)
[2020-03-28 12:39] LABS: Hematocrit 24.5 % (37.5-50.1); Hemoglobin 7.2 g/dL (12.9-16.9); Mean Corpuscular HGB Conc 29.4 g/dL (31.6-35.5); Mean Corpuscular Hemoglobin 27.4 pg (28.0-33.3); Mean Corpuscular Volume 93.2 fL (83.0-100.0); Mean Platelet Volume 9.8 fL (9.4-12.4); Platelet Count 207 K/mcL (140-400); Red Blood Count 2.63 M/mcL (4.19-5.50); Red Cell Distribution Width 19.9 % (11.5-14.5); White Blood Count 7.5 K/mcL (4.3-11.1)
[2020-03-28 12:43] LABS: Bacteria,Urine Few per hpf (None-Few); Bilirubin,Urine Negative (Negative); Blood,Urine Moderate (Negative); Clarity,Urine Turbid (Clear); Color,Urine Yellow (Yellow); Glucose,Urine (UA) Normal (Normal); Hyaline Casts,Urine Many per lpf (None Seen); Ketones,Urine Negative (Negative); Leukocyte Esterase,Urine Small (Negative); Mucus,Urine Few per lpf (None-Few); Nitrite,Urine Negative (Negative); PH,Urine 5.5 pH Units (5.0-8.0); Protein,Urine 100 mg/dL (Neg-Trace); RBC,Urine 15-30 per hpf (0-3); Specific Gravity,Urine 1.022 (1.010-1.025); Squamous Epithelial Cell,Urine Few per hpf (None-Few); WBC,Urine 15-30 per hpf (0-3)
[2020-03-28] MEDS: Furosemide 240 MG in 0.9 % Sodium Chloride 96 ML IVC SCH (12:50)
[2020-03-28] MEDS ORDERED: Furosemide 40 MG/4 ML VIAL IVP ONE (14:13)
[2020-03-28] MEDS: Docusate Oral Soln 100 MG/10 ML UDC GTUBE SCH (20:04)
[2020-03-28 21:30] LABS: Hematocrit 22.8 % (37.5-50.1); Hemoglobin 6.9 g/dL (12.9-16.9)
[2020-03-29] MEDS: Insulin LISPRO 300 UNITS/3 ML VIAL SUBQ SCH ×7 (00:04→23:22)
[2020-03-29] MEDS: Albumin 25% 25gram/100mL 25 GM/100 ML IV.SOLN IVPB SCH ×4 (00:04→23:26)
[2020-03-29] MEDS: Artificial Tears SOLN 15 ML BOTTLE BOTH EYES SCH ×7 (00:04→23:30)
[2020-03-29 00:34] LABS: Hematocrit 24.1 % (37.5-50.1); Hemoglobin 7.2 g/dL (12.9-16.9); Mean Corpuscular HGB Conc 29.9 g/dL (31.6-35.5); Mean Corpuscular Hemoglobin 27.4 pg (28.0-33.3); Mean Corpuscular Volume 91.6 fL (83.0-100.0); Mean Platelet Volume 9.7 fL (9.4-12.4); Platelet Count 227 K/mcL (140-400); Red Blood Count 2.63 M/mcL (4.19-5.50); Red Cell Distribution Width 20.3 % (11.5-14.5)
[2020-03-29] MEDS: FentaNYL (PF) 1,000 MCG/100 ML IV.SOLN IVC SCH (00:50)
[2020-03-29] MEDS: Piperacillin/Tazobactam 3.375 GM in 0.9 % Sodium Chloride Mini Bag 100 ML IVPB SCH ×3 (03:46→20:53)
[2020-03-29 04:51] LABS: Hematocrit 22.3 % (37.5-50.1); Hemoglobin 6.6 g/dL (12.9-16.9); Mean Corpuscular HGB Conc 29.6 g/dL (31.6-35.5); Mean Corpuscular Hemoglobin 26.6 pg (28.0-33.3); Mean Corpuscular Volume 89.9 fL (83.0-100.0); Mean Platelet Volume 9.2 fL (9.4-12.4); Platelet Count 206 K/mcL (140-400); Red Blood Count 2.48 M/mcL (4.19-5.50); Red Cell Distribution Width 20.1 % (11.5-14.5); White Blood Count 6.8 K/mcL (4.3-11.1)
[2020-03-29 04:59] LABS: ABG Base Excess 3 mEq/L (-2 to 3); ABG HCO3 27 mEq/L (21-27); ABG Oxygen Saturation 93 % (95-98); ABG PCO2 39 mmHg (35-45); ABG PH 7.45 pH Units (7.32-7.45); ABG PO2 65 mmHg (85-104); ABG TCO2 29 mEq/L (20-26); Blood Gas Modality ASSIST CONTROL; Blood Gas VT 550 cc
[2020-03-29 05:06] LABS: Magnesium 1.9 mg/dL (1.6-2.6); Phosphorous 3.4 mg/dL (2.7-4.5); Potassium 4.1 mEq/L (3.5-5.1)
[2020-03-29 06:29] LABS: Hematocrit 21.3 % (37.5-50.1); Hemoglobin 6.4 g/dL (12.9-16.9)
[2020-03-29] MEDS: Pantoprazole 40 MG VIAL IVP SCH (07:51)
[2020-03-29] MEDS: Gabapentin 300 MG CAPSULE PO SCH ×3 (07:53→20:55)
[2020-03-29] MEDS: Docusate Oral Soln 100 MG/10 ML UDC GTUBE SCH ×2 (07:53→20:54)
[2020-03-29] MEDS: Chlorhexidine Rinse 15 ML MOUTHWASH MM SCH ×2 (07:59→20:53)
[2020-03-29] MEDS: Metoprolol XL (24 HR) Succ 50 MG TAB.ER.24H PO SCH ×2 (08:01→20:54)
[2020-03-29] MEDS: Nystatin POWDER 30 GM BOTTLE TP SCH ×2 (08:07→20:55)
[2020-03-29] MEDS ORDERED: 0.9 % Sodium Chloride 250 ML ONE (10:33)
[2020-03-29] MEDS: Azithromycin 500 MG in 0.9 % Sodium Chloride 250 ML IVPB SCH (13:03)
[2020-03-29] MEDS: Furosemide 40 MG/4 ML VIAL IVP SCH ×2 (15:13→20:53)
[2020-03-30] MEDS: Artificial Tears SOLN 15 ML BOTTLE BOTH EYES SCH ×6 (03:53→23:49)
[2020-03-30] MEDS: Piperacillin/Tazobactam 3.375 GM in 0.9 % Sodium Chloride Mini Bag 100 ML IVPB SCH ×3 (03:54→20:16)
[2020-03-30 04:00] LABS: Basophils % 0.3 %; Eosinophils # 0.4 K/mcL (0.0-0.6); Eosinophils % 5.4 %; Hematocrit 24.9 % (37.5-50.1); Hemoglobin 7.6 g/dL (12.9-16.9); Immature Granulocytes % 0.4 % (0-4); Lymphocytes # 0.5 K/mcL (0.6-4.6); Lymphocytes % 7.3 %; Mean Corpuscular HGB Conc 30.5 g/dL (31.6-35.5); Mean Corpuscular Hemoglobin 27.4 pg (28.0-33.3); Mean Corpuscular Volume 89.9 fL (83.0-100.0); Mean Platelet Volume 9.4 fL (9.4-12.4); Monocytes % 14.1 %; Platelet Count 203 K/mcL (140-400); Red Blood Count 2.77 M/mcL (4.19-5.50); Red Cell Distribution Width 19.2 % (11.5-14.5); Segmented Neutrophils % 72.5 %; White Blood Count 6.9 K/mcL (4.3-11.1)
[2020-03-30 04:15] LABS: INR 1.4; Prothrombin Time 16.5 Seconds (9.4-12.1)
[2020-03-30 04:25] LABS: Albumin 4.2 g/dL (3.5-5.7); Albumin/Globulin Ratio 1.6 (1.1-2.2); Bilirubin,Total 1.4 mg/dL (0.3-1.0); Calcium 9.3 mg/dL (8.6-10.3); Globulin 2.7 g/dL (2.4-3.5); Magnesium 1.6 mg/dL (1.6-2.6); Phosphorous 3.4 mg/dL (2.7-4.5); Potassium 3.7 mEq/L (3.5-5.1); Total Protein 6.9 g/dL (6.4-8.9)
[2020-03-30 04:45] LABS: ABG Base Excess 3 mEq/L (-2 to 3); ABG HCO3 28 mEq/L (21-27); ABG Oxygen Saturation 97 % (95-98); ABG PCO2 45 mmHg (35-45); ABG PH 7.41 pH Units (7.32-7.45); ABG PO2 86 mmHg (85-104); ABG TCO2 30 mEq/L (20-26); Blood Gas Modality CPAP/PS; Blood Gas Pressure Support 10 cm H2O
[2020-03-30] MEDS: Insulin LISPRO 300 UNITS/3 ML VIAL SUBQ SCH ×6 (04:51→23:47)
[2020-03-30] MEDS: Furosemide 240 MG in 0.9 % Sodium Chloride 96 ML IVC SCH (07:46)
[2020-03-30] MEDS: Albumin 25% 25gram/100mL 25 GM/100 ML IV.SOLN IVPB SCH ×2 (08:03→23:51)
[2020-03-30] MEDS: Pantoprazole 40 MG VIAL IVP SCH (08:05)
[2020-03-30] MEDS: Furosemide 40 MG/4 ML VIAL IVP SCH ×3 (08:05→20:15)
[2020-03-30] MEDS: Gabapentin 300 MG CAPSULE PO SCH ×3 (08:06→20:16)
[2020-03-30] MEDS: Docusate Oral Soln 100 MG/10 ML UDC GTUBE SCH ×2 (08:07→20:15)
[2020-03-30] MEDS: Chlorhexidine Rinse 15 ML MOUTHWASH MM SCH ×2 (08:07→20:15)
[2020-03-30] MEDS: Nystatin POWDER 30 GM BOTTLE TP SCH ×2 (08:08→20:17)
[2020-03-30] MEDS: Azithromycin 500 MG in 0.9 % Sodium Chloride 250 ML IVPB SCH (11:52)
[2020-03-30] MEDS: FentaNYL (PF) 1,000 MCG/100 ML IV.SOLN IVC SCH (11:56)
[2020-03-30] MEDS: *HR* Heparin 5,000 UNIT/ML VIAL SQ SCH (17:33)
[2020-03-31] MEDS: Artificial Tears SOLN 15 ML BOTTLE BOTH EYES SCH ×5 (03:35→19:53)
[2020-03-31] MEDS: Piperacillin/Tazobactam 3.375 GM in 0.9 % Sodium Chloride Mini Bag 100 ML IVPB SCH ×3 (03:35→20:52)
[2020-03-31] MEDS: Insulin LISPRO 300 UNITS/3 ML VIAL SUBQ SCH ×5 (03:35→19:53)
[2020-03-31 04:07] LABS: Basophils % 0.6 %; Eosinophils # 0.5 K/mcL (0.0-0.6); Eosinophils % 9.4 %; Hematocrit 26.4 % (37.5-50.1); Hemoglobin 8.1 g/dL (12.9-16.9); Immature Granulocytes % 0.4 % (0-4); Lymphocytes # 0.5 K/mcL (0.6-4.6); Lymphocytes % 10.8 %; Mean Corpuscular HGB Conc 30.7 g/dL (31.6-35.5); Mean Corpuscular Hemoglobin 27.6 pg (28.0-33.3); Mean Corpuscular Volume 90.1 fL (83.0-100.0); Mean Platelet Volume 9.9 fL (9.4-12.4); Monocytes # 0.7 K/mcL (0.0-1.3); Monocytes % 14.1 %; Neutrophils # 3.1 K/mcL (1.6-8.9); Platelet Count 210 K/mcL (140-400); Red Blood Count 2.93 M/mcL (4.19-5.50); Red Cell Distribution Width 19.2 % (11.5-14.5); Segmented Neutrophils % 64.7 %; White Blood Count 4.8 K/mcL (4.3-11.1)
[2020-03-31 04:55] LABS: ABG Base Excess 4 mEq/L (-2 to 3); ABG HCO3 30 mEq/L (21-27); ABG Oxygen Saturation 94 % (95-98); ABG PCO2 49 mmHg (35-45); ABG PH 7.39 pH Units (7.32-7.45); ABG PO2 74 mmHg (85-104); ABG TCO2 31 mEq/L (20-26); Blood Gas VT 550 cc
[2020-03-31] MEDS: *HR* Heparin 5,000 UNIT/ML VIAL SQ SCH ×2 (05:08→17:19)
[2020-03-31 06:11] LABS: Calcium 8.8 mg/dL (8.6-10.3); Magnesium 1.9 mg/dL (1.6-2.6); Phosphorous 3.5 mg/dL (2.7-4.5); Potassium 3.2 mEq/L (3.5-5.1)
[2020-03-31] MEDS ORDERED: Potassium Chloride Elixir 20 MEQ/15 ML UDC PO ONE (06:28)
[2020-03-31] MEDS: Pantoprazole 40 MG VIAL IVP SCH (08:10)
[2020-03-31] MEDS: Gabapentin 300 MG CAPSULE PO SCH ×3 (08:11→20:54)
[2020-03-31] MEDS: Furosemide 40 MG/4 ML VIAL IVP SCH ×2 (08:11→17:20)
[2020-03-31] MEDS: Chlorhexidine Rinse 15 ML MOUTHWASH MM SCH ×2 (08:12→20:54)
[2020-03-31] MEDS: Docusate Oral Soln 100 MG/10 ML UDC GTUBE SCH ×2 (08:14→20:54)
[2020-03-31] MEDS: Albumin 25% 25gram/100mL 25 GM/100 ML IV.SOLN IVPB SCH ×2 (08:27→15:01)
[2020-03-31] MEDS: Nystatin POWDER 30 GM BOTTLE TP SCH ×2 (08:29→20:55)
[2020-03-31] MEDS: Phenylephrine 50 MG in 0.9 % Sodium Chloride 250 ML IVC SCH (10:32)
[2020-03-31] MEDS: FentaNYL (PF) 1,000 MCG/100 ML IV.SOLN IVC SCH (11:04)
[2020-03-31] MEDS: Azithromycin 500 MG in 0.9 % Sodium Chloride 250 ML IVPB SCH (11:30)
[2020-03-31] MEDS: Albumin 25% 25gram/100mL 25 GM/100 ML IV.SOLN IVC SCH ×2 (15:32→15:35)
[2020-03-31 18:05] LABS: Appearance of Peritoneal Fl CLEAR (Clear)
[2020-03-31 19:35] LABS: Amylase,Peritoneal Fluid < 10 Units/L (No Ref Range); Glucose,Peritoneal Fluid 107 mg/dL (No Ref Range); LDH,Peritoneal Fluid 62 Units/L (No Ref Range); Total Protein,Peritoneal Fluid 3.5 g/dL
[2020-03-31 20:15] LABS: Basophils,Peritoneal Fluid 0 %; Eosinophils,Peritoneal Fluid 0 %
[2020-03-31 20:33] LABS: RBC,Peritoneal Fluid < 2000 RBC/mcL
[2020-04-01] MEDS: Artificial Tears SOLN 15 ML BOTTLE BOTH EYES SCH ×7 (00:04→23:33)
[2020-04-01] MEDS: Insulin LISPRO 300 UNITS/3 ML VIAL SUBQ SCH ×7 (00:05→23:33)
[2020-04-01] MEDS: Albumin 25% 25gram/100mL 25 GM/100 ML IV.SOLN IVPB SCH ×3 (00:08→15:23)
[2020-04-01] MEDS: Furosemide 40 MG/4 ML VIAL IVP SCH ×3 (02:25→17:46)
[2020-04-01] MEDS: Piperacillin/Tazobactam 3.375 GM in 0.9 % Sodium Chloride Mini Bag 100 ML IVPB SCH ×3 (03:36→19:59)
[2020-04-01 04:03] LABS: ABG Base Excess 4 mEq/L (-2 to 3); ABG HCO3 29 mEq/L (21-27); ABG Oxygen Saturation 94 % (95-98); ABG PCO2 46 mmHg (35-45); ABG PH 7.41 pH Units (7.32-7.45); ABG PO2 70 mmHg (85-104); ABG TCO2 31 mEq/L (20-26); Blood Gas Modality ASSIST CONTROL; Blood Gas VT 550 cc
[2020-04-01] MEDS: *HR* Heparin 5,000 UNIT/ML VIAL SQ SCH ×2 (05:07→17:46)
[2020-04-01 05:15] LABS: Basophils % 0.7 %; Eosinophils # 0.4 K/mcL (0.0-0.6); Eosinophils % 9.8 %; Hematocrit 26.1 % (37.5-50.1); Hemoglobin 7.7 g/dL (12.9-16.9); Immature Granulocytes % 0.5 % (0-4); Lymphocytes # 0.4 K/mcL (0.6-4.6); Lymphocytes % 9.5 %; Mean Corpuscular HGB Conc 29.5 g/dL (31.6-35.5); Mean Corpuscular Hemoglobin 26.6 pg (28.0-33.3); Monocytes # 0.6 K/mcL (0.0-1.3); Monocytes % 13.8 %; Neutrophils # 2.9 K/mcL (1.6-8.9); Platelet Count 197 K/mcL (140-400); Red Cell Distribution Width 18.9 % (11.5-14.5); Segmented Neutrophils % 65.7 %; White Blood Count 4.4 K/mcL (4.3-11.1)
[2020-04-01 05:36] LABS: Albumin/Globulin Ratio 1.6 (1.1-2.2); Calcium 8.8 mg/dL (8.6-10.3); Globulin 2.5 g/dL (2.4-3.5); Magnesium 1.8 mg/dL (1.6-2.6); Phosphorous 4.6 mg/dL (2.7-4.5); Potassium 3.5 mEq/L (3.5-5.1); Total Protein 6.5 g/dL (6.4-8.9)
[2020-04-01] MEDS: Docusate Oral Soln 100 MG/10 ML UDC GTUBE SCH ×2 (08:06→20:01)
[2020-04-01] MEDS: Gabapentin 300 MG CAPSULE PO SCH ×3 (08:06→20:00)
[2020-04-01] MEDS: Chlorhexidine Rinse 15 ML MOUTHWASH MM SCH ×2 (08:07→19:59)
[2020-04-01] MEDS: Pantoprazole 40 MG VIAL IVP SCH (08:07)
[2020-04-01] MEDS: Nystatin POWDER 30 GM BOTTLE TP SCH ×2 (08:10→20:01)
[2020-04-01] MEDS: FentaNYL (PF) 1,000 MCG/100 ML IV.SOLN IVC SCH (09:56)
[2020-04-01] MEDS: Azithromycin 500 MG in 0.9 % Sodium Chloride 250 ML IVPB SCH (11:50)
[2020-04-01] MEDS: Dexmedetomidine HCl 400 MCG/100 ML MLS IVC SCH ×2 (12:04→19:18)
[2020-04-01] MEDS: Phenylephrine 50 MG in 0.9 % Sodium Chloride 250 ML IVC SCH (14:22)
[2020-04-02] MEDS: Dexmedetomidine HCl 400 MCG/100 ML MLS IVC SCH ×4 (00:38→18:03)
[2020-04-02] MEDS: Furosemide 40 MG/4 ML VIAL IVP SCH ×2 (02:09→08:21)
[2020-04-02] MEDS: Artificial Tears SOLN 15 ML BOTTLE BOTH EYES SCH ×6 (03:09→23:14)
[2020-04-02] MEDS: Insulin LISPRO 300 UNITS/3 ML VIAL SUBQ SCH ×6 (03:10→23:31)
[2020-04-02] MEDS: Piperacillin/Tazobactam 3.375 GM in 0.9 % Sodium Chloride Mini Bag 100 ML IVPB SCH ×3 (03:11→20:29)
[2020-04-02 03:40] LABS: Basophils % 0.7 %; Eosinophils # 0.4 K/mcL (0.0-0.6); Eosinophils % 8.7 %; Hematocrit 28.3 % (37.5-50.1); Hemoglobin 8.3 g/dL (12.9-16.9); Immature Granulocytes % 0.5 % (0-4); Lymphocytes # 0.5 K/mcL (0.6-4.6); Mean Corpuscular HGB Conc 29.3 g/dL (31.6-35.5); Mean Corpuscular Volume 92.2 fL (83.0-100.0); Mean Platelet Volume 9.4 fL (9.4-12.4); Monocytes # 0.6 K/mcL (0.0-1.3); Monocytes % 14.7 %; Neutrophils # 2.8 K/mcL (1.6-8.9); Platelet Count 187 K/mcL (140-400); Red Blood Count 3.07 M/mcL (4.19-5.50); Red Cell Distribution Width 18.7 % (11.5-14.5); Segmented Neutrophils % 64.4 %; White Blood Count 4.4 K/mcL (4.3-11.1)
[2020-04-02 04:13] LABS: Calcium 8.5 mg/dL (8.6-10.3); Phosphorous 4.9 mg/dL (2.7-4.5); Potassium 3.6 mEq/L (3.5-5.1)
[2020-04-02 04:25] LABS: ABG Base Excess 2 mEq/L (-2 to 3); ABG HCO3 27 mEq/L (21-27); ABG Oxygen Saturation 94 % (95-98); ABG PCO2 43 mmHg (35-45); ABG PH 7.41 pH Units (7.32-7.45); ABG PO2 69 mmHg (85-104); ABG TCO2 28 mEq/L (20-26); Blood Gas Modality ASSIST CONTROL; Blood Gas VT 550 cc
[2020-04-02] MEDS: *HR* Heparin 5,000 UNIT/ML VIAL SQ SCH ×2 (05:41→17:36)
[2020-04-02] MEDS: Chlorhexidine Rinse 15 ML MOUTHWASH MM SCH ×2 (08:21→20:30)
[2020-04-02] MEDS: Docusate Oral Soln 100 MG/10 ML UDC GTUBE SCH ×2 (08:21→20:30)
[2020-04-02] MEDS: Pantoprazole 40 MG VIAL IVP SCH (08:23)
[2020-04-02] MEDS: *HR* OxyCODONE/APAP 5/325 TABLET PO PRN ×3 (08:23→20:30)
[2020-04-02] MEDS: Gabapentin 300 MG CAPSULE PO SCH ×3 (08:24→20:31)
[2020-04-02] MEDS: Nystatin POWDER 30 GM BOTTLE TP SCH ×2 (08:25→20:32)
[2020-04-02] MEDS: Phenylephrine 50 MG in 0.9 % Sodium Chloride 250 ML IVC SCH (11:50)
[2020-04-03] MEDS: Dexmedetomidine HCl 400 MCG/100 ML MLS IVC SCH (02:06)
[2020-04-03] MEDS: Piperacillin/Tazobactam 3.375 GM in 0.9 % Sodium Chloride Mini Bag 100 ML IVPB SCH (03:28)
[2020-04-03 04:05] LABS: Hematocrit 29.5 % (37.5-50.1); Hemoglobin 8.6 g/dL (12.9-16.9); Mean Corpuscular HGB Conc 29.2 g/dL (31.6-35.5); Mean Corpuscular Volume 92.5 fL (83.0-100.0); Mean Platelet Volume 9.7 fL (9.4-12.4); Platelet Count 201 K/mcL (140-400); Red Blood Count 3.19 M/mcL (4.19-5.50); Red Cell Distribution Width 18.8 % (11.5-14.5); White Blood Count 4.9 K/mcL (4.3-11.1)
[2020-04-03] MEDS: Artificial Tears SOLN 15 ML BOTTLE BOTH EYES SCH ×5 (04:14→21:41)
[2020-04-03] MEDS: Insulin LISPRO 300 UNITS/3 ML VIAL SUBQ SCH ×5 (04:14→21:41)
[2020-04-03 04:19] LABS: VBG Ionized Calcium 1.05 mmol/L (1.15-1.35)
[2020-04-03 04:27] LABS: ABG Base Excess 2 mEq/L (-2 to 3); ABG HCO3 27 mEq/L (21-27); ABG Oxygen Saturation 95 % (95-98); ABG PCO2 45 mmHg (35-45); ABG PH 7.38 pH Units (7.32-7.45); ABG PO2 77 mmHg (85-104); ABG TCO2 28 mEq/L (20-26); Blood Gas Modality ASSIST CONTROL; Blood Gas VT 550 cc
[2020-04-03 04:28] LABS: Calcium 8.5 mg/dL (8.6-10.3); Potassium 3.5 mEq/L (3.5-5.1)
[2020-04-03 05:09] LABS: Phosphorous 5.8 mg/dL (2.7-4.5)
[2020-04-03] MEDS: Calcium Gluconate 1gm/50mL 1 GM/50 ML BAG IVPB SCH ×2 (05:16→06:03)
[2020-04-03] MEDS: *HR* Heparin 5,000 UNIT/ML VIAL SQ SCH ×2 (05:17→16:59)
[2020-04-03] MEDS: FentaNYL (PF) 1,000 MCG/100 ML IV.SOLN IVC SCH ×2 (07:15→16:50)
[2020-04-03] MEDS ORDERED: Potassium Chloride Elixir 20 MEQ/15 ML UDC GTUBE ONE (07:46)
[2020-04-03] MEDS: Pantoprazole 40 MG VIAL IVP SCH (08:23)
[2020-04-03] MEDS: Gabapentin 300 MG CAPSULE PO SCH ×3 (08:23→21:42)
[2020-04-03] MEDS: Docusate Oral Soln 100 MG/10 ML UDC GTUBE SCH ×2 (08:27→21:42)
[2020-04-03] MEDS: Nystatin POWDER 30 GM BOTTLE TP SCH ×2 (08:28→21:42)
[2020-04-03] MEDS: Chlorhexidine Rinse 15 ML MOUTHWASH MM SCH ×2 (09:54→21:40)
[2020-04-03] MEDS ORDERED: Haloperidol Lactate 5 MG/ML VIAL IVP ONE (12:24)
[2020-04-03] MEDS: Furosemide 40 MG/4 ML VIAL IVP SCH ×2 (12:55→16:59)
[2020-04-03] MEDS: Doxycycline 100 MG in 0.9 % Sodium Chloride Mini Bag 100 ML IVPB SCH (17:02)
[2020-04-03] MEDS: Phenylephrine 50 MG in 0.9 % Sodium Chloride 250 ML IVC SCH (21:35)
[2020-04-04] MEDS: Insulin LISPRO 300 UNITS/3 ML VIAL SUBQ SCH ×7 (00:18→23:36)
[2020-04-04] MEDS: Artificial Tears SOLN 15 ML BOTTLE BOTH EYES SCH ×7 (00:18→23:37)
[2020-04-04] MEDS: FentaNYL (PF) 1,000 MCG/100 ML IV.SOLN IVC SCH ×3 (00:19→18:50)
[2020-04-04 03:55] LABS: VBG Ionized Calcium 1.02 mmol/L (1.15-1.35)
[2020-04-04 04:14] LABS: ABG Base Excess 1 mEq/L (-2 to 3); ABG HCO3 26 mEq/L (21-27); ABG Oxygen Saturation 94 % (95-98); ABG PCO2 44 mmHg (35-45); ABG PH 7.38 pH Units (7.32-7.45); ABG PO2 72 mmHg (85-104); ABG TCO2 27 mEq/L (20-26); Blood Gas VT 550 cc
[2020-04-04 04:17] LABS: Calcium 8.5 mg/dL (8.6-10.3); Magnesium 2.1 mg/dL (1.6-2.6); Phosphorous 6.1 mg/dL (2.7-4.5); Potassium 3.3 mEq/L (3.5-5.1)
[2020-04-04] MEDS: Doxycycline 100 MG in 0.9 % Sodium Chloride Mini Bag 100 ML IVPB SCH ×2 (05:50→18:38)
[2020-04-04] MEDS: *HR* Heparin 5,000 UNIT/ML VIAL SQ SCH ×2 (05:50→18:39)
[2020-04-04 07:13] LABS: Basophils % 0.7 %; Eosinophils # 0.3 K/mcL (0.0-0.6); Eosinophils % 7.8 %; Hematocrit 27.9 % (37.5-50.1); Hemoglobin 8.2 g/dL (12.9-16.9); Immature Granulocytes % 0.7 % (0-4); Lymphocytes # 0.6 K/mcL (0.6-4.6); Lymphocytes % 12.6 %; Mean Corpuscular HGB Conc 29.4 g/dL (31.6-35.5); Mean Corpuscular Volume 91.8 fL (83.0-100.0); Mean Platelet Volume 10.7 fL (9.4-12.4); Monocytes # 0.7 K/mcL (0.0-1.3); Neutrophils # 2.7 K/mcL (1.6-8.9); Platelet Count 205 K/mcL (140-400); Red Blood Count 3.04 M/mcL (4.19-5.50); Red Cell Distribution Width 18.6 % (11.5-14.5); Segmented Neutrophils % 62.2 %; White Blood Count 4.4 K/mcL (4.3-11.1)
[2020-04-04] MEDS: Chlorhexidine Rinse 15 ML MOUTHWASH MM SCH ×2 (08:28→20:00)
[2020-04-04] MEDS: Furosemide 40 MG/4 ML VIAL IVP SCH ×2 (08:33→18:38)
[2020-04-04] MEDS: Calcium Gluconate 1gm/50mL 1 GM/50 ML BAG IVPB SCH ×2 (08:33→09:36)
[2020-04-04] MEDS: Gabapentin 300 MG CAPSULE PO SCH ×3 (08:33→20:34)
[2020-04-04] MEDS: Docusate Oral Soln 100 MG/10 ML UDC GTUBE SCH ×2 (08:34→20:34)
[2020-04-04] MEDS: Pantoprazole 40 MG VIAL IVP SCH (08:34)
[2020-04-04] MEDS: Nystatin POWDER 30 GM BOTTLE TP SCH ×2 (08:35→19:59)
[2020-04-04] MEDS: Phenylephrine 50 MG in 0.9 % Sodium Chloride 250 ML IVC SCH (09:53)
[2020-04-04] MEDS: Dexmedetomidine HCl 400 MCG/100 ML MLS IVC SCH ×2 (11:13→19:00)
[2020-04-04] MEDS ORDERED: Albumin 25% 25gram/100mL 50 GM/200 ML IV.SOLN ONE (18:04)
[2020-04-04] MEDS ORDERED: Albumin Human 5% 12.5 GM/250 ML IV.SOLN ONE (18:05)
[2020-04-04 18:31] LABS: Calcium 8.8 mg/dL (8.6-10.3); Potassium 3.7 mEq/L (3.5-5.1)
[2020-04-04] MEDS: Albumin 25% 25gram/100mL 25 GM/100 ML IV.SOLN IVC SCH ×2 (19:43→21:03)
[2020-04-04] MEDS ORDERED: Albumin 25% 12.5gm/50mL 12.5 GM/50 ML IV.SOLN IVPB ONE (22:00)
[2020-04-04] MEDS: FentaNYL (PF) 2,500 MCG/50 ML IV.SOLN IVC SCH (23:36)
[2020-04-05] MEDS: Furosemide 40 MG/4 ML VIAL IVP SCH ×3 (02:00→18:11)
[2020-04-05 03:42] LABS: Hematocrit 28.5 % (37.5-50.1); Hemoglobin 8.3 g/dL (12.9-16.9); Mean Corpuscular HGB Conc 29.1 g/dL (31.6-35.5); Mean Corpuscular Hemoglobin 26.9 pg (28.0-33.3); Mean Corpuscular Volume 92.2 fL (83.0-100.0); Mean Platelet Volume 9.6 fL (9.4-12.4); Platelet Count 202 K/mcL (140-400); Red Blood Count 3.09 M/mcL (4.19-5.50); Red Cell Distribution Width 18.4 % (11.5-14.5); White Blood Count 5.2 K/mcL (4.3-11.1)
[2020-04-05] MEDS: Insulin LISPRO 300 UNITS/3 ML VIAL SUBQ SCH ×5 (03:55→20:50)
[2020-04-05 03:56] LABS: VBG Ionized Calcium 1.05 mmol/L (1.15-1.35)
[2020-04-05] MEDS: Artificial Tears SOLN 15 ML BOTTLE BOTH EYES SCH ×5 (03:56→20:50)
[2020-04-05 04:03] LABS: Phosphorous 6.4 mg/dL (2.7-4.5); Potassium 3.5 mEq/L (3.5-5.1)
[2020-04-05 04:26] LABS: ABG Base Excess 0 mEq/L (-2 to 3); ABG HCO3 27 mEq/L (21-27); ABG Oxygen Saturation 96 % (95-98); ABG PCO2 54 mmHg (35-45); ABG PH 7.31 pH Units (7.32-7.45); ABG PO2 88 mmHg (85-104); ABG TCO2 29 mEq/L (20-26); Blood Gas VT 550 cc
[2020-04-05] MEDS ORDERED: Calcium Gluconate 1gm/50mL 1 GM/50 ML BAG IVPB ONE (05:05)
[2020-04-05] MEDS: *HR* Heparin 5,000 UNIT/ML VIAL SQ SCH ×2 (05:52→18:10)
[2020-04-05] MEDS: Doxycycline 100 MG in 0.9 % Sodium Chloride Mini Bag 100 ML IVPB SCH ×2 (05:52→18:10)
[2020-04-05] MEDS: Docusate Oral Soln 100 MG/10 ML UDC GTUBE SCH ×2 (08:44→22:18)
[2020-04-05] MEDS: Nystatin POWDER 30 GM BOTTLE TP SCH ×2 (08:44→21:30)
[2020-04-05] MEDS: Chlorhexidine Rinse 15 ML MOUTHWASH MM SCH ×2 (08:45→22:18)
[2020-04-05] MEDS: Pantoprazole 40 MG VIAL IVP SCH (08:45)
[2020-04-05] MEDS: Gabapentin 300 MG CAPSULE PO SCH ×3 (08:46→22:21)
[2020-04-05] MEDS: Phenylephrine 50 MG in 0.9 % Sodium Chloride 250 ML IVC SCH (09:34)
[2020-04-05 13:55] LABS: ABG Base Excess -3 mEq/L (-2 to 3); ABG HCO3 27 mEq/L (21-27); ABG Oxygen Saturation 82 % (95-98); ABG PCO2 80 mmHg (35-45); ABG PH 7.14 pH Units (7.32-7.45); ABG PO2 63 mmHg (85-104); ABG TCO2 30 mEq/L (20-26)
[2020-04-05 15:59] LABS: ABG Base Excess -3 mEq/L (-2 to 3); ABG HCO3 26 mEq/L (21-27); ABG Oxygen Saturation 90 % (95-98); ABG PCO2 65 mmHg (35-45); ABG PH 7.21 pH Units (7.32-7.45); ABG PO2 73 mmHg (85-104); ABG TCO2 28 mEq/L (20-26)
[2020-04-05] MEDS: *HR* Metoprolol 5 MG/5 ML VIAL IVP PRN ×2 (18:11→20:48)
[2020-04-05] MEDS: Dexmedetomidine HCl 400 MCG/100 ML MLS IVC SCH ×2 (18:24→23:45)
[2020-04-05] MEDS: FentaNYL (PF) 2,500 MCG/50 ML IV.SOLN IVC SCH (22:18)
[2020-04-06] MEDS: Artificial Tears SOLN 15 ML BOTTLE BOTH EYES SCH ×6 (00:18→20:00)
[2020-04-06] MEDS: Insulin LISPRO 300 UNITS/3 ML VIAL SUBQ SCH ×6 (00:18→20:00)
[2020-04-06] MEDS: Furosemide 40 MG/4 ML VIAL IVP SCH ×3 (01:49→17:08)
[2020-04-06 04:25] LABS: Basophils % 0.4 %; Eosinophils % 0.5 %; Immature Granulocytes % 0.4 % (0-4); Red Cell Distribution Width 18.1 % (11.5-14.5)
[2020-04-06 04:27] LABS: Hematocrit 26.3 % (37.5-50.1); Hemoglobin 7.5 g/dL (12.9-16.9); Lymphocytes # 0.4 K/mcL (0.6-4.6); Lymphocytes % 6.7 %; Mean Corpuscular HGB Conc 28.5 g/dL (31.6-35.5); Mean Corpuscular Hemoglobin 26.9 pg (28.0-33.3); Mean Corpuscular Volume 94.3 fL (83.0-100.0); Monocytes # 0.8 K/mcL (0.0-1.3); Monocytes % 14.3 %; Neutrophils # 4.3 K/mcL (1.6-8.9); Platelet Count 184 K/mcL (140-400); Red Blood Count 2.79 M/mcL (4.19-5.50); Segmented Neutrophils % 77.7 %; White Blood Count 5.5 K/mcL (4.3-11.1)
[2020-04-06 04:30] LABS: VBG Ionized Calcium 1.08 mmol/L (1.15-1.35)
[2020-04-06] MEDS: Dexmedetomidine HCl 400 MCG/100 ML MLS IVC SCH (04:33)
[2020-04-06 04:37] LABS: Phosphorous 7.9 mg/dL (2.7-4.5); Potassium 4.2 mEq/L (3.5-5.1)
[2020-04-06 05:04] LABS: Anisocytosis 1+ (Not Present); Hypochromasia Present (Not Present); Platelet Estimate Normal (Normal)
[2020-04-06] MEDS: Doxycycline 100 MG in 0.9 % Sodium Chloride Mini Bag 100 ML IVPB SCH ×2 (05:26→17:07)
[2020-04-06] MEDS: Calcium Gluconate 1gm/50mL 1 GM/50 ML BAG IVPB SCH ×2 (05:26→06:26)
[2020-04-06] MEDS: *HR* Heparin 5,000 UNIT/ML VIAL SQ SCH (05:27)
[2020-04-06 05:37] LABS: ABG Base Excess 0 mEq/L (-2 to 3); ABG HCO3 28 mEq/L (21-27); ABG Oxygen Saturation 90 % (95-98); ABG PCO2 61 mmHg (35-45); ABG PH 7.27 pH Units (7.32-7.45); ABG PO2 68 mmHg (85-104); ABG TCO2 30 mEq/L (20-26); Blood Gas VT 550 cc
[2020-04-06] MEDS: Gabapentin 300 MG CAPSULE PO SCH ×3 (08:22→22:30)
[2020-04-06] MEDS: Docusate Oral Soln 100 MG/10 ML UDC GTUBE SCH ×2 (08:22→22:29)
[2020-04-06] MEDS: Nystatin POWDER 30 GM BOTTLE TP SCH ×2 (08:23→22:30)
[2020-04-06] MEDS: Chlorhexidine Rinse 15 ML MOUTHWASH MM SCH ×2 (08:29→19:59)
[2020-04-06] MEDS: Pantoprazole 40 MG VIAL IVP SCH (08:29)
[2020-04-06] MEDS ORDERED: 0.9 % Sodium Chloride 250 ML IVC PRN (09:13)
[2020-04-06] MEDS ORDERED: *HR* Heparin 10,000 UNIT/10 ML VIAL IV PRN (09:13)
[2020-04-06] MEDS ORDERED: Albumin 25% 25gram/100mL 25 GM/100 ML IV.SOLN IVPB PRN (09:13)
[2020-04-06] MEDS ORDERED: 0.9 % Sodium Chloride 1,000 ML PRIME SCH (09:15)
[2020-04-06] MEDS ORDERED: Heparin 1,000 UNITS/500 mL 500 ML ONE (10:16)
[2020-04-06] MEDS ORDERED: *HR* Midazolam HCl 5 MG/5 ML VIAL IVP ONE (10:18)
[2020-04-06] MEDS ORDERED: *HR* Midazolam HCl 2 MG/2 ML VIAL IVP ONE (10:22)
[2020-04-06] MEDS ORDERED: *HR* FentaNYL (PF) 100 MCG/2 ML VIAL IVP ONE (10:22)
[2020-04-06] MEDS ORDERED: *HR* Heparin 5,000 UNIT/ML VIAL ONE (10:37)
[2020-04-06 10:55] LABS: Hepatitis B Surface Antibody < 3.10 mIU/mL
[2020-04-06 11:05] LABS: Hepatitis B Surface Antigen Nonreactive (Nonreactive)
[2020-04-06] MEDS ORDERED: *HR* Heparin 5,000 UNIT/ML VIAL IVP PRN ×2 (15:24)
[2020-04-06] MEDS: *HR* Metoprolol 5 MG/5 ML VIAL IVP PRN (15:25)
[2020-04-06] MEDS: *HR* Metoprolol 5 MG/5 ML VIAL IVP SCH ×2 (15:59→18:09)
[2020-04-06 16:46] LABS: Red Cell Distribution Width 17.9 % (11.5-14.5)
[2020-04-06 16:47] LABS: Hematocrit 26.8 % (37.5-50.1); Hemoglobin 7.8 g/dL (12.9-16.9); Mean Corpuscular HGB Conc 29.1 g/dL (31.6-35.5); Mean Corpuscular Hemoglobin 27.4 pg (28.0-33.3); Mean Platelet Volume 10.1 fL (9.4-12.4); Platelet Count 188 K/mcL (140-400); Red Blood Count 2.85 M/mcL (4.19-5.50); White Blood Count 7.1 K/mcL (4.3-11.1)
[2020-04-06 16:53] LABS: Activated Partial Thrombo Time 36.9 Seconds (26.0-36.0); Heparin anti-factor XA UFH 0.04 IU/mL (0.30-0.70); INR 1.3; Prothrombin Time 14.9 Seconds (9.4-12.1)
[2020-04-06] MEDS: Heparin 25,000UNIT/250ML 1/2NS 25,000 UNIT/250 ML IV.SOLN IVC SCH (17:07)
[2020-04-06] MEDS: DilTIAZem 50 MG/50 ML IV.SOLN IVC SCH ×3 (17:40→23:36)
[2020-04-06 22:17] LABS: ABG Base Excess -3 mEq/L (-2 to 3); ABG HCO3 27 mEq/L (21-27); ABG Oxygen Saturation 92 % (95-98); ABG PCO2 85 mmHg (35-45); ABG PH 7.11 pH Units (7.32-7.45); ABG PO2 87 mmHg (85-104); ABG TCO2 30 mEq/L (20-26); Blood Gas Modality AVAPS; Blood Gas VT 550 cc
[2020-04-06] MEDS: FentaNYL (PF) 2,500 MCG/50 ML IV.SOLN IVC SCH (22:30)
[2020-04-06 23:08] LABS: Red Blood Count 2.63 M/mcL (4.19-5.50); Red Cell Distribution Width 18.1 % (11.5-14.5)
[2020-04-06 23:09] LABS: Hematocrit 24.4 % (37.5-50.1); Hemoglobin 6.9 g/dL (12.9-16.9); Mean Corpuscular HGB Conc 28.3 g/dL (31.6-35.5); Mean Corpuscular Hemoglobin 26.2 pg (28.0-33.3); Mean Corpuscular Volume 92.8 fL (83.0-100.0); Mean Platelet Volume 10.2 fL (9.4-12.4); Platelet Count 196 K/mcL (140-400); White Blood Count 7.7 K/mcL (4.3-11.1)
[2020-04-06 23:25] LABS: Calcium 9.2 mg/dL (8.6-10.3)
[2020-04-06] MEDS: FentaNYL (PF) 1,000 MCG/100 ML IV.SOLN IVC SCH (23:30)
[2020-04-06 23:36] LABS: Anisocytosis 1+ (Not Present); Lymphocytes # 1.2 K/mcL (0.6-4.6); Monocytes # 0.5 K/mcL (0.0-1.3)
[2020-04-06 23:37] LABS: Basophilic Stippling 1+ (Not Present); Hypochromasia Present (Not Present); Platelet Estimate Normal (Normal)
[2020-04-07] MEDS: Artificial Tears SOLN 15 ML BOTTLE BOTH EYES SCH ×6 (00:55→20:37)
[2020-04-07] MEDS: *HR* Metoprolol 5 MG/5 ML VIAL IVP SCH ×4 (00:55→18:26)
[2020-04-07] MEDS: Insulin LISPRO 300 UNITS/3 ML VIAL SUBQ SCH ×6 (00:55→20:38)
[2020-04-07] MEDS ORDERED: 0.9 % Sodium Chloride 250 ML IVC SCH (01:00)
[2020-04-07] MEDS: Furosemide 40 MG/4 ML VIAL IVP SCH ×3 (01:10→18:26)
[2020-04-07 01:26] LABS: ABG Base Excess 1 mEq/L (-2 to 3); ABG HCO3 27 mEq/L (21-27); ABG Oxygen Saturation 91 % (95-98); ABG PCO2 52 mmHg (35-45); ABG PH 7.32 pH Units (7.32-7.45); ABG PO2 66 mmHg (85-104); ABG TCO2 29 mEq/L (20-26); Blood Gas VT 550 cc
[2020-04-07 03:52] LABS: ABG Base Excess 1 mEq/L (-2 to 3); ABG HCO3 27 mEq/L (21-27); ABG Oxygen Saturation 99 % (95-98); ABG PCO2 50 mmHg (35-45); ABG PH 7.34 pH Units (7.32-7.45); ABG PO2 126 mmHg (85-104); ABG TCO2 29 mEq/L (20-26); Blood Gas Modality ASSIST CONTROL; Blood Gas VT 550 cc
[2020-04-07 04:52] LABS: Basophils % 0.4 %; Eosinophils % 0.2 %; Hematocrit 23.7 % (37.5-50.1); Immature Granulocytes % 0.4 % (0-4); Lymphocytes # 0.4 K/mcL (0.6-4.6); Lymphocytes % 7.7 %; Mean Corpuscular HGB Conc 29.5 g/dL (31.6-35.5); Mean Corpuscular Hemoglobin 26.9 pg (28.0-33.3); Mean Corpuscular Volume 91.2 fL (83.0-100.0); Mean Platelet Volume 9.9 fL (9.4-12.4); Monocytes # 0.9 K/mcL (0.0-1.3); Monocytes % 16.8 %; Neutrophils # 4.2 K/mcL (1.6-8.9); Platelet Count 185 K/mcL (140-400); Red Cell Distribution Width 17.8 % (11.5-14.5); Segmented Neutrophils % 74.5 %; White Blood Count 5.6 K/mcL (4.3-11.1)
[2020-04-07 05:11] LABS: Albumin/Globulin Ratio 1.3 (1.1-2.2); Bilirubin,Direct 0.3 mg/dL (0.0-0.2); Bilirubin,Indirect 0.5 mg/dL (0.0-1.0); Bilirubin,Total 0.8 mg/dL (0.3-1.0); Calcium 9.2 mg/dL (8.6-10.3); Globulin 3.1 g/dL (2.4-3.5); Magnesium 1.8 mg/dL (1.6-2.6); Phosphorous 6.3 mg/dL (2.7-4.5); Potassium 4.3 mEq/L (3.5-5.1); Total Protein 7.1 g/dL (6.4-8.9)
[2020-04-07] MEDS: Heparin 25,000UNIT/250ML 1/2NS 25,000 UNIT/250 ML IV.SOLN IVC SCH (05:54)
[2020-04-07] MEDS: Norepinephrine 4 MG/254 ML IV.SOLN IVC SCH ×2 (05:55→23:58)
[2020-04-07] MEDS: Doxycycline 100 MG in 0.9 % Sodium Chloride Mini Bag 100 ML IVPB SCH ×2 (05:58→18:25)
[2020-04-07 06:02] LABS: INR 1.4; Prothrombin Time 16.4 Seconds (9.4-12.1)
[2020-04-07] MEDS: FentaNYL (PF) 1,000 MCG/100 ML IV.SOLN IVC SCH ×2 (07:00→17:00)
[2020-04-07] MEDS ORDERED: *HR* Heparin 10,000 UNIT/10 ML VIAL IV PRN (07:15)
[2020-04-07] MEDS ORDERED: 0.9 % Sodium Chloride 250 ML IVC PRN (07:15)
[2020-04-07] MEDS ORDERED: 0.9 % Sodium Chloride 1,000 ML PRIME SCH (07:15)
[2020-04-07] MEDS ORDERED: Albumin 25% 25gram/100mL 25 GM/100 ML IV.SOLN IVPB PRN (07:15)
[2020-04-07] MEDS: Docusate Oral Soln 100 MG/10 ML UDC GTUBE SCH ×2 (07:51→20:38)
[2020-04-07] MEDS: Gabapentin 300 MG CAPSULE PO SCH (08:03)
[2020-04-07] MEDS: Pantoprazole 40 MG VIAL IVP SCH (08:03)
[2020-04-07] MEDS: Nystatin POWDER 30 GM BOTTLE TP SCH ×2 (08:05→20:39)
[2020-04-07] MEDS: Chlorhexidine Rinse 15 ML MOUTHWASH MM SCH ×2 (08:06→20:38)
[2020-04-07] MEDS ORDERED: *HR* Succinylcholine 200 MG/10 ML VIAL IVP ONE (10:00)
[2020-04-07] MEDS ORDERED: *HR* Propofol 200 MG/20 ML VIAL IVP ONE (10:00)
[2020-04-07 12:53] LABS: Hematocrit 25.1 % (37.5-50.1); Hemoglobin 7.7 g/dL (12.9-16.9)
[2020-04-07] MEDS: *HR* Heparin 5,000 UNIT/ML VIAL SQ SCH (21:05)
[2020-04-08] MEDS: Insulin LISPRO 300 UNITS/3 ML VIAL SUBQ SCH ×7 (00:17→23:13)
[2020-04-08] MEDS: Artificial Tears SOLN 15 ML BOTTLE BOTH EYES SCH ×7 (00:17→23:13)
[2020-04-08] MEDS: *HR* Metoprolol 5 MG/5 ML VIAL IVP SCH ×5 (00:20→23:13)
[2020-04-08] MEDS: FentaNYL (PF) 1,000 MCG/100 ML IV.SOLN IVC SCH ×3 (02:08→18:46)
[2020-04-08] MEDS: Furosemide 40 MG/4 ML VIAL IVP SCH (02:23)
[2020-04-08] MEDS: Dexmedetomidine HCl 400 MCG/100 ML MLS IVC SCH ×3 (02:23→23:14)
[2020-04-08 03:34] LABS: ABG Base Excess 3 mEq/L (-2 to 3); ABG HCO3 29 mEq/L (21-27); ABG Oxygen Saturation 95 % (95-98); ABG PCO2 51 mmHg (35-45); ABG PH 7.36 pH Units (7.32-7.45); ABG PO2 82 mmHg (85-104); ABG TCO2 30 mEq/L (20-26); Blood Gas VT 550 cc
[2020-04-08 04:34] LABS: Basophils % 0.4 %; Eosinophils # 0.2 K/mcL (0.0-0.6); Eosinophils % 4.3 %; Hematocrit 23.6 % (37.5-50.1); Hemoglobin 7.2 g/dL (12.9-16.9); Immature Granulocytes % 0.6 % (0-4); Lymphocytes # 0.6 K/mcL (0.6-4.6); Lymphocytes % 12.3 %; Mean Corpuscular HGB Conc 30.5 g/dL (31.6-35.5); Mean Corpuscular Hemoglobin 27.2 pg (28.0-33.3); Mean Corpuscular Volume 89.1 fL (83.0-100.0); Mean Platelet Volume 10.2 fL (9.4-12.4); Monocytes # 0.9 K/mcL (0.0-1.3); Monocytes % 16.6 %; Neutrophils # 3.4 K/mcL (1.6-8.9); Platelet Count 189 K/mcL (140-400); Red Blood Count 2.65 M/mcL (4.19-5.50); Red Cell Distribution Width 18.2 % (11.5-14.5); Segmented Neutrophils % 65.8 %; White Blood Count 5.1 K/mcL (4.3-11.1)
[2020-04-08 04:39] LABS: INR 1.3; Prothrombin Time 14.7 Seconds (9.4-12.1)
[2020-04-08 04:57] LABS: Albumin 3.6 g/dL (3.5-5.7); Albumin/Globulin Ratio 1.1 (1.1-2.2); Bilirubin,Total 0.7 mg/dL (0.3-1.0); Calcium 9.4 mg/dL (8.6-10.3); Globulin 3.2 g/dL (2.4-3.5); Magnesium 1.7 mg/dL (1.6-2.6); Phosphorous 4.3 mg/dL (2.7-4.5); Potassium 3.6 mEq/L (3.5-5.1); Total Protein 6.8 g/dL (6.4-8.9)
[2020-04-08] MEDS: *HR* Heparin 5,000 UNIT/ML VIAL SQ SCH ×3 (05:21→19:41)
[2020-04-08] MEDS: Doxycycline 100 MG in 0.9 % Sodium Chloride Mini Bag 100 ML IVPB SCH ×2 (05:21→18:15)
[2020-04-08] MEDS: Pantoprazole 40 MG VIAL IVP SCH ×2 (08:22→18:29)
[2020-04-08] MEDS: Nystatin POWDER 30 GM BOTTLE TP SCH ×2 (08:22→19:37)
[2020-04-08] MEDS: Chlorhexidine Rinse 15 ML MOUTHWASH MM SCH ×2 (08:22→19:37)
[2020-04-08] MEDS: Docusate Oral Soln 100 MG/10 ML UDC GTUBE SCH ×2 (08:22→19:37)
[2020-04-08] MEDS ORDERED: 0.9 % Sodium Chloride 250 ML IVC PRN (08:52)
[2020-04-08] MEDS ORDERED: *HR* Heparin 10,000 UNIT/10 ML VIAL IV PRN (08:52)
[2020-04-08 09:45] LABS: Adenovirus Not Detected (Not Detect); Bordetella Pertussis Not Detected (Not Detect); Chlamydophila pneumoniae Not Detected (Not Detect); Coronavirus 229E Not Detected (Not Detect); Coronavirus HKU1 Not Detected (Not Detect); Coronavirus NL63 Not Detected (Not Detect); Coronavirus OC43 Not Detected (Not Detect); Human Metapneumovirus Not Detected (Not Detect); Human Rhinovirus/Enterovirus Not Detected (Not Detect); Influenza A Subtype 2009 H1 Not Detected (Not Detect); Influenza B Not Detected (Not Detect); Mycoplasma pneumoniae Not Detected (Not Detect); Parainfluenza Virus 1 Not Detected (Not Detect); Parainfluenza Virus 2 Not Detected (Not Detect); Parainfluenza Virus 3 Not Detected (Not Detect); Parainfluenza Virus 4 Not Detected (Not Detect); Respiratory Syncytial Virus Not Detected (Not Detect); SARS-CoV-2 Not Detected (Not Detect)
[2020-04-08] MEDS: Norepinephrine 4 MG/254 ML IV.SOLN IVC SCH (20:20)
[2020-04-09] MEDS: Artificial Tears SOLN 15 ML BOTTLE BOTH EYES SCH ×5 (03:37→19:16)
[2020-04-09] MEDS: Insulin LISPRO 300 UNITS/3 ML VIAL SUBQ SCH ×6 (03:37→23:53)
[2020-04-09] MEDS: FentaNYL (PF) 1,000 MCG/100 ML IV.SOLN IVC SCH (03:37)
[2020-04-09 04:02] LABS: Basophils % 0.7 %; Eosinophils # 0.3 K/mcL (0.0-0.6); Eosinophils % 5.9 %; Hematocrit 24.3 % (37.5-50.1); Hemoglobin 7.1 g/dL (12.9-16.9); Immature Granulocytes % 0.2 % (0-4); Lymphocytes # 0.5 K/mcL (0.6-4.6); Lymphocytes % 11.4 %; Mean Corpuscular HGB Conc 29.2 g/dL (31.6-35.5); Mean Corpuscular Hemoglobin 26.8 pg (28.0-33.3); Mean Corpuscular Volume 91.7 fL (83.0-100.0); Mean Platelet Volume 9.6 fL (9.4-12.4); Monocytes # 0.8 K/mcL (0.0-1.3); Monocytes % 16.9 %; Platelet Count 187 K/mcL (140-400); Red Blood Count 2.65 M/mcL (4.19-5.50); Red Cell Distribution Width 17.9 % (11.5-14.5); Segmented Neutrophils % 64.9 %; White Blood Count 4.6 K/mcL (4.3-11.1)
[2020-04-09 04:08] LABS: ABG Base Excess 4 mEq/L (-2 to 3); ABG HCO3 30 mEq/L (21-27); ABG Oxygen Saturation 98 % (95-98); ABG PCO2 53 mmHg (35-45); ABG PH 7.36 pH Units (7.32-7.45); ABG PO2 115 mmHg (85-104); ABG TCO2 32 mEq/L (20-26); Blood Gas Modality AF; Blood Gas VT 580 cc
[2020-04-09 04:20] LABS: Albumin 3.5 g/dL (3.5-5.7); Bilirubin,Total 0.7 mg/dL (0.3-1.0); Calcium 9.3 mg/dL (8.6-10.3); Globulin 3.5 g/dL (2.4-3.5); Magnesium 1.4 mg/dL (1.6-2.6); Phosphorous 5.4 mg/dL (2.7-4.5); Potassium 3.8 mEq/L (3.5-5.1)
[2020-04-09 04:30] LABS: INR 1.2; Prothrombin Time 13.9 Seconds (9.4-12.1)
[2020-04-09] MEDS: *HR* Metoprolol 5 MG/5 ML VIAL IVP SCH ×4 (05:30→23:53)
[2020-04-09] MEDS: Doxycycline 100 MG in 0.9 % Sodium Chloride Mini Bag 100 ML IVPB SCH ×2 (05:31→18:02)
[2020-04-09] MEDS: Pantoprazole 40 MG VIAL IVP SCH ×2 (05:31→18:03)
[2020-04-09] MEDS: *HR* Heparin 5,000 UNIT/ML VIAL SQ SCH ×3 (05:32→19:18)
[2020-04-09] MEDS ORDERED: 0.9 % Sodium Chloride 250 ML IVC PRN (08:08)
[2020-04-09] MEDS ORDERED: *HR* Heparin 10,000 UNIT/10 ML VIAL IV PRN (08:08)
[2020-04-09] MEDS: Docusate Oral Soln 100 MG/10 ML UDC GTUBE SCH ×2 (08:15→19:16)
[2020-04-09] MEDS: Chlorhexidine Rinse 15 ML MOUTHWASH MM SCH ×2 (08:16→19:16)
[2020-04-09] MEDS: Nystatin POWDER 30 GM BOTTLE TP SCH ×2 (12:18→19:17)
[2020-04-09] MEDS: Dexmedetomidine HCl 400 MCG/100 ML MLS IVC SCH ×2 (16:17→21:38)
[2020-04-09] MEDS: Norepinephrine 4 MG/254 ML IV.SOLN IVC SCH (21:40)
[2020-04-10] MEDS: Dexmedetomidine HCl 400 MCG/100 ML MLS IVC SCH ×8 (01:05→23:00)
[2020-04-10 01:54] LABS: Hematocrit 21.2 % (37.5-50.1); Hemoglobin 6.4 g/dL (12.9-16.9)
[2020-04-10] MEDS ORDERED: Furosemide 20 MG/2 ML VIAL IVP ONE (02:16)
[2020-04-10] MEDS ORDERED: 0.9 % Sodium Chloride 250 ML IVC SCH (02:30)
[2020-04-10] MEDS: Norepinephrine 4 MG/254 ML IV.SOLN IVC SCH (03:06)
[2020-04-10 03:51] LABS: Calcium 9.1 mg/dL (8.6-10.3); Phosphorous 4.4 mg/dL (2.7-4.5); Potassium 3.5 mEq/L (3.5-5.1)
[2020-04-10] MEDS: Insulin LISPRO 300 UNITS/3 ML VIAL SUBQ SCH ×6 (04:30→23:19)
[2020-04-10] MEDS: *HR* Metoprolol 5 MG/5 ML VIAL IVP SCH ×4 (04:30→23:19)
[2020-04-10] MEDS: Doxycycline 100 MG in 0.9 % Sodium Chloride Mini Bag 100 ML IVPB SCH ×2 (05:21→17:02)
[2020-04-10] MEDS: *HR* Heparin 5,000 UNIT/ML VIAL SQ SCH ×3 (05:21→22:28)
[2020-04-10] MEDS: Pantoprazole 40 MG VIAL IVP SCH ×2 (05:21→17:01)
[2020-04-10 05:51] LABS: ABG Base Excess 1 mEq/L (-2 to 3); ABG HCO3 26 mEq/L (21-27); ABG Oxygen Saturation 94 % (95-98); ABG PCO2 43 mmHg (35-45); ABG PO2 73 mmHg (85-104); ABG TCO2 28 mEq/L (20-26)
[2020-04-10 06:50] LABS: Basophils % 0.5 %; Eosinophils # 0.2 K/mcL (0.0-0.6); Eosinophils % 4.3 %; Hematocrit 24.1 % (37.5-50.1); Hemoglobin 7.3 g/dL (12.9-16.9); Immature Granulocytes % 0.5 % (0-4); Lymphocytes # 0.5 K/mcL (0.6-4.6); Lymphocytes % 11.1 %; Mean Corpuscular HGB Conc 30.3 g/dL (31.6-35.5); Mean Corpuscular Volume 89.3 fL (83.0-100.0); Mean Platelet Volume 9.8 fL (9.4-12.4); Monocytes # 0.7 K/mcL (0.0-1.3); Monocytes % 15.8 %; Neutrophils # 2.9 K/mcL (1.6-8.9); Platelet Count 130 K/mcL (140-400); Red Cell Distribution Width 17.6 % (11.5-14.5); Segmented Neutrophils % 67.8 %; White Blood Count 4.2 K/mcL (4.3-11.1)
[2020-04-10 06:56] LABS: INR 1.2; Prothrombin Time 14.3 Seconds (9.4-12.1)
[2020-04-10 06:59] LABS: Activated Partial Thrombo Time 31.1 Seconds (26.0-36.0)
[2020-04-10] MEDS: Docusate Oral Soln 100 MG/10 ML UDC GTUBE SCH ×2 (07:39→20:02)
[2020-04-10] MEDS: Nystatin POWDER 30 GM BOTTLE TP SCH ×2 (07:40→20:05)
[2020-04-10] MEDS ORDERED: *HR* Heparin 5,000 UNIT/ML VIAL ONE (08:57)
[2020-04-10] MEDS ORDERED: Heparin 1,000 UNITS/500 mL 500 ML ONE (09:00)
[2020-04-11] MEDS: Dexmedetomidine HCl 400 MCG/100 ML MLS IVC SCH ×7 (02:00→22:21)
[2020-04-11 03:46] LABS: INR 1.3; Prothrombin Time 14.9 Seconds (9.4-12.1)
[2020-04-11 03:56] LABS: Basophils % 0.8 %; Eosinophils # 0.2 K/mcL (0.0-0.6); Eosinophils % 3.4 %; Hematocrit 23.1 % (37.5-50.1); Hemoglobin 7.1 g/dL (12.9-16.9); Immature Granulocytes % 0.2 % (0-4); Lymphocytes # 0.6 K/mcL (0.6-4.6); Lymphocytes % 12.5 %; Mean Corpuscular HGB Conc 30.7 g/dL (31.6-35.5); Mean Corpuscular Hemoglobin 27.3 pg (28.0-33.3); Mean Corpuscular Volume 88.8 fL (83.0-100.0); Monocytes # 0.7 K/mcL (0.0-1.3); Monocytes % 14.2 %; Neutrophils # 3.3 K/mcL (1.6-8.9); Platelet Count 137 K/mcL (140-400); Red Cell Distribution Width 17.8 % (11.5-14.5); Segmented Neutrophils % 68.9 %; White Blood Count 4.7 K/mcL (4.3-11.1)
[2020-04-11] MEDS: Norepinephrine 4 MG/254 ML IV.SOLN IVC SCH (04:01)
[2020-04-11 04:02] LABS: Calcium 9.4 mg/dL (8.6-10.3); Magnesium 1.9 mg/dL (1.6-2.6); Phosphorous 5.4 mg/dL (2.7-4.5); Potassium 3.5 mEq/L (3.5-5.1)
[2020-04-11] MEDS: Insulin LISPRO 300 UNITS/3 ML VIAL SUBQ SCH ×5 (04:02→19:31)
[2020-04-11] MEDS: *HR* Metoprolol 5 MG/5 ML VIAL IVP SCH ×3 (05:07→18:11)
[2020-04-11] MEDS: Doxycycline 100 MG in 0.9 % Sodium Chloride Mini Bag 100 ML IVPB SCH ×2 (05:28→18:10)
[2020-04-11] MEDS: *HR* Heparin 5,000 UNIT/ML VIAL SQ SCH ×3 (05:28→19:41)
[2020-04-11] MEDS: Pantoprazole 40 MG VIAL IVP SCH ×2 (05:29→18:10)
[2020-04-11 06:58] LABS: Albumin 3.8 g/dL (3.5-5.7); Albumin/Globulin Ratio 1.2 (1.1-2.2); Bilirubin,Direct 0.4 mg/dL (0.0-0.2); Bilirubin,Indirect 0.6 mg/dL (0.0-1.0); Globulin 3.3 g/dL (2.4-3.5); Total Protein 7.1 g/dL (6.4-8.9)
[2020-04-11] MEDS ORDERED: 0.9 % Sodium Chloride 250 ML IVC PRN (07:15)
[2020-04-11] MEDS ORDERED: 0.9 % Sodium Chloride 1,000 ML ONE ×2 (07:26→13:56)
[2020-04-11] MEDS: Docusate Oral Soln 100 MG/10 ML UDC GTUBE SCH ×2 (07:53→19:32)
[2020-04-11] MEDS: Nystatin POWDER 30 GM BOTTLE TP SCH ×2 (09:00→19:32)
[2020-04-11] MEDS ORDERED: *HR* Heparin 10,000 UNIT/10 ML VIAL IV PRN (11:41)
[2020-04-12] MEDS: *HR* Metoprolol 5 MG/5 ML VIAL IVP SCH ×5 (00:08→23:22)
[2020-04-12] MEDS: Insulin LISPRO 300 UNITS/3 ML VIAL SUBQ SCH ×7 (00:08→23:25)
[2020-04-12] MEDS: Dexmedetomidine HCl 400 MCG/100 ML MLS IVC SCH ×6 (02:00→23:23)
[2020-04-12] MEDS: Norepinephrine 4 MG/254 ML IV.SOLN IVC SCH (04:02)
[2020-04-12 04:33] LABS: Basophils % 0.8 %; Eosinophils # 0.2 K/mcL (0.0-0.6); Hematocrit 23.5 % (37.5-50.1); Hemoglobin 7.3 g/dL (12.9-16.9); Immature Granulocytes % 0.3 % (0-4); Lymphocytes # 0.6 K/mcL (0.6-4.6); Lymphocytes % 14.8 %; Mean Corpuscular HGB Conc 31.1 g/dL (31.6-35.5); Mean Corpuscular Hemoglobin 28.3 pg (28.0-33.3); Mean Corpuscular Volume 91.1 fL (83.0-100.0); Mean Platelet Volume 9.9 fL (9.4-12.4); Monocytes # 0.5 K/mcL (0.0-1.3); Monocytes % 12.5 %; Neutrophils # 2.5 K/mcL (1.6-8.9); Platelet Count 107 K/mcL (140-400); Red Blood Count 2.58 M/mcL (4.19-5.50); Red Cell Distribution Width 17.9 % (11.5-14.5); Segmented Neutrophils % 65.6 %; White Blood Count 3.9 K/mcL (4.3-11.1)
[2020-04-12 04:53] LABS: Calcium 9.2 mg/dL (8.6-10.3); Magnesium 1.9 mg/dL (1.6-2.6); Phosphorous 4.9 mg/dL (2.7-4.5); Potassium 3.5 mEq/L (3.5-5.1)
[2020-04-12] MEDS: *HR* Heparin 5,000 UNIT/ML VIAL SQ SCH ×3 (06:09→21:06)
[2020-04-12] MEDS: Doxycycline 100 MG in 0.9 % Sodium Chloride Mini Bag 100 ML IVPB SCH ×2 (06:09→17:13)
[2020-04-12] MEDS: Pantoprazole 40 MG VIAL IVP SCH ×2 (06:10→17:13)
[2020-04-12] MEDS ORDERED: *HR* LORazepam 2 MG/ML VIAL IVP PRN (08:33)
[2020-04-12] MEDS: Docusate Oral Soln 100 MG/10 ML UDC GTUBE SCH (09:00)
[2020-04-12] MEDS: Nystatin POWDER 30 GM BOTTLE TP SCH ×2 (09:00→20:36)
[2020-04-13] MEDS: Dexmedetomidine HCl 400 MCG/100 ML MLS IVC SCH ×5 (02:24→21:53)
[2020-04-13 04:04] LABS: Basophils % 0.4 %; Eosinophils # 0.1 K/mcL (0.0-0.6); Eosinophils % 2.4 %; Hematocrit 22.1 % (37.5-50.1); Hemoglobin 6.8 g/dL (12.9-16.9); Immature Granulocytes % 0.4 % (0-4); Lymphocytes # 0.6 K/mcL (0.6-4.6); Lymphocytes % 11.2 %; Mean Corpuscular HGB Conc 30.8 g/dL (31.6-35.5); Mean Corpuscular Hemoglobin 27.1 pg (28.0-33.3); Mean Platelet Volume 9.9 fL (9.4-12.4); Monocytes # 0.7 K/mcL (0.0-1.3); Monocytes % 14.1 %; Neutrophils # 3.6 K/mcL (1.6-8.9); Platelet Count 104 K/mcL (140-400); Red Blood Count 2.51 M/mcL (4.19-5.50); Red Cell Distribution Width 18.4 % (11.5-14.5); Segmented Neutrophils % 71.5 %
[2020-04-13 04:14] LABS: Phosphorous 5.9 mg/dL (2.7-4.5); Potassium 3.7 mEq/L (3.5-5.1)
[2020-04-13] MEDS: Insulin LISPRO 300 UNITS/3 ML VIAL SUBQ SCH ×5 (04:26→21:48)
[2020-04-13] MEDS: *HR* Metoprolol 5 MG/5 ML VIAL IVP SCH ×3 (05:18→17:38)
[2020-04-13] MEDS: Pantoprazole 40 MG VIAL IVP SCH ×2 (05:19→17:15)
[2020-04-13] MEDS: *HR* Heparin 5,000 UNIT/ML VIAL SQ SCH ×3 (05:19→21:52)
[2020-04-13] MEDS ORDERED: 0.9 % Sodium Chloride 250 ML IVC SCH (05:30)
[2020-04-13] MEDS ORDERED: 0.9 % Sodium Chloride 250 ML IVC PRN (07:19)
[2020-04-13] MEDS: Nystatin POWDER 30 GM BOTTLE TP SCH ×2 (07:39→21:52)
[2020-04-13 12:40] LABS: Basophils % 0.5 %; Eosinophils # 0.1 K/mcL (0.0-0.6); Eosinophils % 2.3 %; Hematocrit 25.2 % (37.5-50.1); Hemoglobin 7.8 g/dL (12.9-16.9); Immature Granulocytes % 0.5 % (0-4); Lymphocytes # 0.5 K/mcL (0.6-4.6); Lymphocytes % 8.8 %; Mean Corpuscular Hemoglobin 28.4 pg (28.0-33.3); Mean Corpuscular Volume 91.6 fL (83.0-100.0); Mean Platelet Volume 10.3 fL (9.4-12.4); Monocytes # 0.7 K/mcL (0.0-1.3); Monocytes % 13.3 %; Neutrophils # 4.2 K/mcL (1.6-8.9); Platelet Count 110 K/mcL (140-400); Red Blood Count 2.75 M/mcL (4.19-5.50); Segmented Neutrophils % 74.6 %; White Blood Count 5.6 K/mcL (4.3-11.1)
[2020-04-14] MEDS: Insulin LISPRO 300 UNITS/3 ML VIAL SUBQ SCH ×7 (00:07→23:49)
[2020-04-14] MEDS: *HR* Metoprolol 5 MG/5 ML VIAL IVP SCH ×5 (00:08→23:49)
[2020-04-14] MEDS: Dexmedetomidine HCl 400 MCG/100 ML MLS IVC SCH ×5 (00:40→21:30)
[2020-04-14 04:19] LABS: Basophils % 0.6 %; Hematocrit 25.1 % (37.5-50.1); Hemoglobin 7.6 g/dL (12.9-16.9); Mean Corpuscular HGB Conc 30.3 g/dL (31.6-35.5); Red Cell Distribution Width 18.3 % (11.5-14.5)
[2020-04-14 04:22] LABS: Eosinophils # 0.2 K/mcL (0.0-0.6); Immature Granulocytes % 0.4 % (0-4); Immature Platelets 4.3 % (1.1-6.1); Lymphocytes # 0.6 K/mcL (0.6-4.6); Lymphocytes % 11.1 %; Mean Corpuscular Hemoglobin 27.5 pg (28.0-33.3); Mean Corpuscular Volume 90.9 fL (83.0-100.0); Mean Platelet Volume 11.2 fL (9.4-12.4); Monocytes # 0.8 K/mcL (0.0-1.3); Monocytes % 15.3 %; Neutrophils # 3.5 K/mcL (1.6-8.9); Platelet Count 107 K/mcL (140-400); Red Blood Count 2.76 M/mcL (4.19-5.50); Segmented Neutrophils % 69.6 %
[2020-04-14 04:42] LABS: Albumin 3.9 g/dL (3.5-5.7); Albumin/Globulin Ratio 1.1 (1.1-2.2); Bilirubin,Direct 0.6 mg/dL (0.0-0.2); Bilirubin,Indirect 0.9 mg/dL (0.0-1.0); Bilirubin,Total 1.5 mg/dL (0.3-1.0); Globulin 3.6 g/dL (2.4-3.5); Total Protein 7.5 g/dL (6.4-8.9)
[2020-04-14 04:43] LABS: Calcium 8.9 mg/dL (8.6-10.3); Phosphorous 5.1 mg/dL (2.7-4.5); Potassium 3.6 mEq/L (3.5-5.1)
[2020-04-14] MEDS: Pantoprazole 40 MG VIAL IVP SCH ×2 (05:45→17:52)
[2020-04-14] MEDS: *HR* Heparin 5,000 UNIT/ML VIAL SQ SCH ×3 (05:45→22:50)
[2020-04-14] MEDS: Nystatin POWDER 30 GM BOTTLE TP SCH ×2 (07:27→19:58)
[2020-04-14] MEDS ORDERED: Naloxone 0.4 MG/ML INJ IVP PRN (18:11)
[2020-04-14] MEDS ORDERED: D5% in Water 1,000 ML IVC PRN (18:11)
[2020-04-14] MEDS ORDERED: Ipratropium/Albuterol Neb 3 ML IH PRN (18:11)
[2020-04-14] MEDS ORDERED: *HR* Dextrose 50 % in Water (Vial) 50 ML VIAL IVP PRN (18:11)
[2020-04-14] MEDS ORDERED: Acetaminophen 325 MG TABLET PO PRN (18:11)
[2020-04-14] MEDS ORDERED: *HR* Heparin 10,000 UNIT/10 ML VIAL IV PRN (18:11)
[2020-04-14] MEDS ORDERED: Dextrose Gel 15 GM/37.5 ML TUBE PO PRN ×2 (18:11)
[2020-04-15] MEDS: Dexmedetomidine HCl 400 MCG/100 ML MLS IVC SCH ×5 (02:45→21:15)
[2020-04-15 03:21] LABS: Basophils % 0.6 %; Hemoglobin 7.3 g/dL (12.9-16.9); Mean Corpuscular Volume 91.3 fL (83.0-100.0); Monocytes % 15.5 %; Red Cell Distribution Width 18.6 % (11.5-14.5)
[2020-04-15] MEDS: Insulin LISPRO 300 UNITS/3 ML VIAL SUBQ SCH ×5 (03:22→21:40)
[2020-04-15 03:23] LABS: Eosinophils # 0.2 K/mcL (0.0-0.6); Eosinophils % 2.8 %; Immature Granulocytes % 0.4 % (0-4); Immature Platelets 4.3 % (1.1-6.1); Lymphocytes # 0.6 K/mcL (0.6-4.6); Lymphocytes % 11.6 %; Mean Corpuscular HGB Conc 30.4 g/dL (31.6-35.5); Mean Corpuscular Hemoglobin 27.8 pg (28.0-33.3); Mean Platelet Volume 10.5 fL (9.4-12.4); Monocytes # 0.8 K/mcL (0.0-1.3); Neutrophils # 3.7 K/mcL (1.6-8.9); Platelet Count 103 K/mcL (140-400); Red Blood Count 2.63 M/mcL (4.19-5.50); Segmented Neutrophils % 69.1 %; White Blood Count 5.4 K/mcL (4.3-11.1)
[2020-04-15 03:28] LABS: INR 1.4; Prothrombin Time 15.8 Seconds (9.4-12.1)
[2020-04-15 03:33] LABS: Calcium 9.1 mg/dL (8.6-10.3); Potassium 3.7 mEq/L (3.5-5.1)
[2020-04-15] MEDS: *HR* Metoprolol 5 MG/5 ML VIAL IVP SCH ×3 (05:00→16:56)
[2020-04-15] MEDS: Pantoprazole 40 MG VIAL IVP SCH ×2 (05:00→16:57)
[2020-04-15] MEDS: *HR* Heparin 5,000 UNIT/ML VIAL SQ SCH ×3 (05:00→21:45)
[2020-04-15] MEDS ORDERED: 0.9 % Sodium Chloride 2,000 ML ONE (06:29)
[2020-04-15] MEDS ORDERED: 0.9 % Sodium Chloride 250 ML IVC PRN (07:10)
[2020-04-15] MEDS: Nystatin POWDER 30 GM BOTTLE TP SCH ×2 (14:55→21:45)
[2020-04-16] MEDS: *HR* Metoprolol 5 MG/5 ML VIAL IVP SCH ×5 (00:04→22:15)
[2020-04-16] MEDS: Insulin LISPRO 300 UNITS/3 ML VIAL SUBQ SCH ×7 (01:27→23:59)
[2020-04-16] MEDS: Dexmedetomidine HCl 400 MCG/100 ML MLS IVC SCH ×4 (03:19→20:16)
[2020-04-16 05:43] LABS: Basophils % 0.6 %; Eosinophils # 0.1 K/mcL (0.0-0.6); Eosinophils % 2.4 %; Hematocrit 24.8 % (37.5-50.1); Hemoglobin 7.6 g/dL (12.9-16.9); Immature Granulocytes % 0.2 % (0-4); Immature Platelets 3.7 % (1.1-6.1); Lymphocytes # 0.5 K/mcL (0.6-4.6); Mean Corpuscular HGB Conc 30.6 g/dL (31.6-35.5); Mean Corpuscular Hemoglobin 28.5 pg (28.0-33.3); Mean Corpuscular Volume 92.9 fL (83.0-100.0); Mean Platelet Volume 10.6 fL (9.4-12.4); Monocytes % 19.6 %; Platelet Count 115 K/mcL (140-400); Red Blood Count 2.67 M/mcL (4.19-5.50); Red Cell Distribution Width 18.6 % (11.5-14.5); Segmented Neutrophils % 66.2 %; White Blood Count 4.9 K/mcL (4.3-11.1)
[2020-04-16 05:45] LABS: Calcium 9.3 mg/dL (8.6-10.3); Potassium 3.6 mEq/L (3.5-5.1)
[2020-04-16 05:49] LABS: Neutrophils # 3.2 K/mcL (1.6-8.9)
[2020-04-16] MEDS: *HR* Heparin 5,000 UNIT/ML VIAL SQ SCH ×3 (05:54→21:53)
[2020-04-16] MEDS: Pantoprazole 40 MG VIAL IVP SCH ×2 (05:54→17:28)
[2020-04-16 06:19] LABS: Anisocytosis 1+ (Not Present); Hypochromasia Present (Not Present); Platelet Estimate Slight Decrease (Normal); Poikilocytosis 1+ (Not Present)
[2020-04-16] MEDS: Nystatin POWDER 30 GM BOTTLE TP SCH ×2 (09:34→20:13)
[2020-04-17] MEDS: Dexmedetomidine HCl 400 MCG/100 ML MLS IVC SCH ×3 (03:22→17:24)
[2020-04-17] MEDS: Pantoprazole 40 MG VIAL IVP SCH ×2 (05:45→17:05)
[2020-04-17] MEDS: Insulin LISPRO 300 UNITS/3 ML VIAL SUBQ SCH ×5 (05:45→20:07)
[2020-04-17] MEDS: *HR* Heparin 5,000 UNIT/ML VIAL SQ SCH ×3 (05:47→20:30)
[2020-04-17] MEDS: *HR* Metoprolol 5 MG/5 ML VIAL IVP SCH ×4 (05:48→23:13)
[2020-04-17 06:49] LABS: Red Cell Distribution Width 18.7 % (11.5-14.5)
[2020-04-17 06:51] LABS: Basophils % 0.7 %; Eosinophils # 0.2 K/mcL (0.0-0.6); Hematocrit 23.4 % (37.5-50.1); Hemoglobin 7.1 g/dL (12.9-16.9); Immature Granulocytes % 0.5 % (0-4); Immature Platelets 4.4 % (1.1-6.1); Lymphocytes # 0.6 K/mcL (0.6-4.6); Lymphocytes % 14.2 %; Mean Corpuscular HGB Conc 30.3 g/dL (31.6-35.5); Mean Corpuscular Hemoglobin 27.8 pg (28.0-33.3); Mean Corpuscular Volume 91.8 fL (83.0-100.0); Mean Platelet Volume 10.6 fL (9.4-12.4); Monocytes # 0.8 K/mcL (0.0-1.3); Monocytes % 19.2 %; Neutrophils # 2.4 K/mcL (1.6-8.9); Platelet Count 113 K/mcL (140-400); Red Blood Count 2.55 M/mcL (4.19-5.50); Segmented Neutrophils % 60.4 %
[2020-04-17] MEDS ORDERED: 0.9 % Sodium Chloride 250 ML IVC PRN (07:11)
[2020-04-17 07:13] LABS: Calcium 9.1 mg/dL (8.6-10.3); Potassium 3.6 mEq/L (3.5-5.1)
[2020-04-17] MEDS ORDERED: 0.9 % Sodium Chloride 2,000 ML ONE (07:15)
[2020-04-17] MEDS: Nystatin POWDER 30 GM BOTTLE TP SCH ×2 (08:24→20:29)
[2020-04-17 13:51] LABS: Adenovirus Not Detected (Not Detect); Bordetella Pertussis Not Detected (Not Detect); Chlamydophila pneumoniae Not Detected (Not Detect); Coronavirus 229E Not Detected (Not Detect); Coronavirus HKU1 Not Detected (Not Detect); Coronavirus NL63 Not Detected (Not Detect); Coronavirus OC43 Not Detected (Not Detect); Human Metapneumovirus Not Detected (Not Detect); Human Rhinovirus/Enterovirus Not Detected (Not Detect); Influenza A Subtype 2009 H1 Not Detected (Not Detect); Influenza B Not Detected (Not Detect); Mycoplasma pneumoniae Not Detected (Not Detect); Parainfluenza Virus 1 Not Detected (Not Detect); Parainfluenza Virus 2 Not Detected (Not Detect); Parainfluenza Virus 3 Not Detected (Not Detect); Parainfluenza Virus 4 Not Detected (Not Detect); Respiratory Syncytial Virus Not Detected (Not Detect); SARS-CoV-2 Not Detected (Not Detect)
[2020-04-17] MEDS ORDERED: *HR* Metoprolol 5 MG/5 ML VIAL IVP ONE (19:41)
[2020-04-18] MEDS: Dexmedetomidine HCl 400 MCG/100 ML MLS IVC SCH ×4 (00:27→18:41)
[2020-04-18 02:06] LABS: Basophils % 0.7 %; Eosinophils # 0.2 K/mcL (0.0-0.6); Eosinophils % 3.9 %; Hematocrit 23.6 % (37.5-50.1); Hemoglobin 7.2 g/dL (12.9-16.9); Immature Granulocytes % 0.2 % (0-4); Lymphocytes # 0.6 K/mcL (0.6-4.6); Lymphocytes % 13.5 %; Mean Corpuscular HGB Conc 30.5 g/dL (31.6-35.5); Mean Corpuscular Hemoglobin 28.2 pg (28.0-33.3); Mean Corpuscular Volume 92.5 fL (83.0-100.0); Mean Platelet Volume 10.3 fL (9.4-12.4); Monocytes # 0.8 K/mcL (0.0-1.3); Monocytes % 18.6 %; Neutrophils # 2.7 K/mcL (1.6-8.9); Platelet Count 105 K/mcL (140-400); Red Blood Count 2.55 M/mcL (4.19-5.50); Red Cell Distribution Width 18.7 % (11.5-14.5); Segmented Neutrophils % 63.1 %; White Blood Count 4.3 K/mcL (4.3-11.1)
[2020-04-18 02:24] LABS: Calcium 8.7 mg/dL (8.6-10.3); Potassium 3.4 mEq/L (3.5-5.1)
[2020-04-18 02:56] LABS: Anisocytosis 1+ (Not Present); Hypochromasia Present (Not Present); Platelet Estimate Slight Decrease (Normal); Poikilocytosis 1+ (Not Present)
[2020-04-18] MEDS: Insulin LISPRO 300 UNITS/3 ML VIAL SUBQ SCH ×6 (05:32→20:43)
[2020-04-18] MEDS: Pantoprazole 40 MG VIAL IVP SCH ×2 (05:35→18:38)
[2020-04-18] MEDS: *HR* Heparin 5,000 UNIT/ML VIAL SQ SCH ×3 (05:36→20:45)
[2020-04-18] MEDS: *HR* Metoprolol 5 MG/5 ML VIAL IVP SCH ×4 (05:36→23:39)
[2020-04-18] MEDS: Nystatin POWDER 30 GM BOTTLE TP SCH ×2 (08:57→20:45)
[2020-04-18] MEDS ORDERED: Lidocaine HCL 4 ML Topical Solution (Laryng-O-Jet Kit Sterile Pak) TP ONE (11:26)
[2020-04-18] MEDS ORDERED: Ondansetron 4 MG/2 ML VIAL ONE (11:26)
[2020-04-18] MEDS ORDERED: *HR* Propofol 200 MG/20 ML VIAL IVP ONE (11:26)
[2020-04-18] MEDS ORDERED: *HR* FentaNYL (PF) 100 MCG/2 ML VIAL ONE (11:26)
[2020-04-18] MEDS ORDERED: Lidocaine -MPF 2% 2 ML VIAL ONE ×2 (11:26→11:59)
[2020-04-18] MEDS ORDERED: *HR* Succinylcholine 200 MG/10 ML VIAL IVP ONE (11:26)
[2020-04-18] MEDS ORDERED: Dexamethasone 4 MG/ML VIAL ONE (11:26)
[2020-04-18] MEDS ORDERED: *HR* Rocuronium Bromide 50 MG/5 ML VIAL ONE (11:26)
[2020-04-19] MEDS: Dexmedetomidine HCl 400 MCG/100 ML MLS IVC SCH (03:06)
[2020-04-19] MEDS: Insulin LISPRO 300 UNITS/3 ML VIAL SUBQ SCH ×6 (03:23→19:48)
[2020-04-19] MEDS: Pantoprazole 40 MG VIAL IVP SCH ×2 (05:08→17:48)
[2020-04-19] MEDS: *HR* Metoprolol 5 MG/5 ML VIAL IVP SCH (05:09)
[2020-04-19] MEDS: *HR* Heparin 5,000 UNIT/ML VIAL SQ SCH ×3 (05:09→22:05)
[2020-04-19 05:43] LABS: Basophils % 0.6 %; Eosinophils % 2.4 %; Hemoglobin 7.1 g/dL (12.9-16.9); Immature Granulocytes % 0.3 % (0-4); Mean Corpuscular Volume 96.5 fL (83.0-100.0)
[2020-04-19 05:44] LABS: Eosinophils # 0.1 K/mcL (0.0-0.6); Hematocrit 24.8 % (37.5-50.1); Lymphocytes # 0.6 K/mcL (0.6-4.6); Lymphocytes % 18.3 %; Mean Corpuscular HGB Conc 28.6 g/dL (31.6-35.5); Mean Corpuscular Hemoglobin 27.6 pg (28.0-33.3); Mean Platelet Volume 10.4 fL (9.4-12.4); Monocytes # 0.6 K/mcL (0.0-1.3); Monocytes % 18.3 %; Platelet Count 120 K/mcL (140-400); Red Blood Count 2.57 M/mcL (4.19-5.50); Segmented Neutrophils % 60.1 %; White Blood Count 3.3 K/mcL (4.3-11.1)
[2020-04-19 06:03] LABS: Anisocytosis 2+ (Not Present); Macrocytosis Present (Not Present); Polychromasia 1+ (Not Present)
[2020-04-19 09:07] LABS: Magnesium 1.8 mg/dL (1.6-2.6); Phosphorous 5.5 mg/dL (2.7-4.5)
[2020-04-19 09:58] LABS: Calcium 8.9 mg/dL (8.6-10.3); Potassium 3.8 mEq/L (3.5-5.1)
[2020-04-19] MEDS: Nystatin POWDER 30 GM BOTTLE TP SCH ×2 (10:14→19:45)
[2020-04-19] MEDS ORDERED: *HR* Metoprolol 5 MG/5 ML VIAL IVP ONE (10:45)
[2020-04-19] MEDS ORDERED: risperiDONE 0.25 MG TABLET PO SCH (11:00)
[2020-04-19] MEDS ORDERED: *HR* Adenosine 6 MG/2 ML SYRINGE IVP ONE (11:17)
[2020-04-19] MEDS ORDERED: *HR* Metoprolol 5 MG/5 ML VIAL IVP PRN (11:40)
[2020-04-19] MEDS: risperiDONE 0.25 MG TABLET GTUBE SCH ×2 (11:50→19:45)
[2020-04-19] MEDS ORDERED: Amiodarone Premix 150 MG/100 ML BAG IVPB ONE ×2 (17:21→17:22)
[2020-04-19] MEDS ORDERED: Amiodarone Premix 360 MG/200 ML BAG IVC ONE ×2 (17:21→17:36)
[2020-04-19 18:13] LABS: Hemoglobin 7.3 g/dL (12.9-16.9)
[2020-04-19 18:15] LABS: Hematocrit 25.5 % (37.5-50.1)
[2020-04-19] MEDS: Amiodarone Premix 360 MG/200 ML BAG IVC SCH (23:58)
[2020-04-20] MEDS: Insulin LISPRO 300 UNITS/3 ML VIAL SUBQ SCH ×6 (00:03→21:26)
[2020-04-20 02:39] LABS: Basophils % 0.6 %; Eosinophils # 0.2 K/mcL (0.0-0.6); Eosinophils % 3.1 %; Hematocrit 24.1 % (37.5-50.1); Hemoglobin 7.1 g/dL (12.9-16.9); Immature Granulocytes % 0.2 % (0-4); Lymphocytes # 0.5 K/mcL (0.6-4.6); Mean Corpuscular HGB Conc 29.5 g/dL (31.6-35.5); Mean Corpuscular Hemoglobin 28.5 pg (28.0-33.3); Mean Corpuscular Volume 96.8 fL (83.0-100.0); Mean Platelet Volume 10.3 fL (9.4-12.4); Monocytes # 0.8 K/mcL (0.0-1.3); Monocytes % 16.3 %; Neutrophils # 3.3 K/mcL (1.6-8.9); Platelet Count 135 K/mcL (140-400); Red Blood Count 2.49 M/mcL (4.19-5.50); Red Cell Distribution Width 18.7 % (11.5-14.5); Segmented Neutrophils % 68.8 %; White Blood Count 4.8 K/mcL (4.3-11.1)
[2020-04-20 02:58] LABS: Calcium 9.1 mg/dL (8.6-10.3); Magnesium 1.9 mg/dL (1.6-2.6); Phosphorous 5.3 mg/dL (2.7-4.5); Potassium 3.7 mEq/L (3.5-5.1)
[2020-04-20] MEDS: Pantoprazole 40 MG VIAL IVP SCH ×2 (05:50→16:52)
[2020-04-20] MEDS: *HR* Heparin 5,000 UNIT/ML VIAL SQ SCH ×3 (05:50→21:29)
[2020-04-20] MEDS ORDERED: 0.9 % Sodium Chloride 2,000 ML ONE (06:26)
[2020-04-20] MEDS: risperiDONE 0.25 MG TABLET GTUBE SCH ×2 (08:03→21:29)
[2020-04-20] MEDS: Aspirin 81 MG TAB.CHEW GTUBE SCH (08:03)
[2020-04-20] MEDS: amLODIPine 5 MG TABLET GTUBE SCH (08:03)
[2020-04-20] MEDS: Metoprolol 100 MG TABLET GTUBE SCH ×2 (08:03→21:29)
[2020-04-20] MEDS: Nystatin POWDER 30 GM BOTTLE TP SCH ×2 (08:04→21:46)
[2020-04-20] MEDS ORDERED: 0.9 % Sodium Chloride 250 ML IVC PRN (11:42)
[2020-04-20] MEDS ORDERED: *HR* Heparin 10,000 UNIT/10 ML VIAL IV PRN (11:42)
[2020-04-20] MEDS ORDERED: 0.9 % Sodium Chloride 1,000 ML PRIME SCH (11:45)
[2020-04-20] MEDS: Amiodarone Premix 360 MG/200 ML BAG IVC SCH (11:49)
[2020-04-20 16:09] LABS: INR 1.3; Prothrombin Time 15.4 Seconds (9.4-12.1)
[2020-04-20] MEDS ORDERED: Melatonin 3 MG TABLET PO PRN (23:41)
[2020-04-21] MEDS: Amiodarone Premix 360 MG/200 ML BAG IVC SCH
[2020-04-21] MEDS: Insulin LISPRO 300 UNITS/3 ML VIAL SUBQ SCH ×6 (00:50→20:41)
[2020-04-21 05:01] LABS: Basophils % 0.6 %; Eosinophils # 0.3 K/mcL (0.0-0.6); Eosinophils % 5.3 %; Hemoglobin 6.9 g/dL (12.9-16.9); Immature Granulocytes % 0.4 % (0-4); Immature Platelets 5.7 % (1.1-6.1); Lymphocytes # 0.5 K/mcL (0.6-4.6); Lymphocytes % 9.4 %; Mean Corpuscular Hemoglobin 28.3 pg (28.0-33.3); Mean Corpuscular Volume 94.3 fL (83.0-100.0); Mean Platelet Volume 10.9 fL (9.4-12.4); Monocytes # 0.7 K/mcL (0.0-1.3); Monocytes % 13.5 %; Neutrophils # 3.6 K/mcL (1.6-8.9); Platelet Count 121 K/mcL (140-400); Red Blood Count 2.44 M/mcL (4.19-5.50); Red Cell Distribution Width 18.6 % (11.5-14.5); Segmented Neutrophils % 70.8 %; White Blood Count 5.1 K/mcL (4.3-11.1)
[2020-04-21 05:16] LABS: Calcium 8.8 mg/dL (8.6-10.3); Magnesium 1.7 mg/dL (1.6-2.6); Phosphorous 2.6 mg/dL (2.7-4.5); Potassium 3.4 mEq/L (3.5-5.1)
[2020-04-21] MEDS: Pantoprazole 40 MG VIAL IVP SCH ×2 (06:00→17:27)
[2020-04-21] MEDS: *HR* Heparin 5,000 UNIT/ML VIAL SQ SCH ×3 (06:01→21:27)
[2020-04-21] MEDS ORDERED: 0.9 % Sodium Chloride 250 ML IVC SCH (07:45)
[2020-04-21] MEDS: amLODIPine 5 MG TABLET GTUBE SCH (08:05)
[2020-04-21] MEDS: Metoprolol 100 MG TABLET GTUBE SCH ×2 (08:05→21:25)
[2020-04-21] MEDS: Aspirin 81 MG TAB.CHEW GTUBE SCH (08:05)
[2020-04-21] MEDS: risperiDONE 0.25 MG TABLET GTUBE SCH ×2 (08:05→21:25)
[2020-04-21] MEDS: Nystatin POWDER 30 GM BOTTLE TP SCH ×2 (08:06→21:27)
[2020-04-21] MEDS ORDERED: Heparin 1,000 UNITS/500 mL 500 ML ONE (14:10)
[2020-04-22] MEDS: Insulin LISPRO 300 UNITS/3 ML VIAL SUBQ SCH ×5 (00:20→17:09)
[2020-04-22 00:58] LABS: Basophils % 0.4 %; Hemoglobin 7.8 g/dL (12.9-16.9); Red Blood Count 2.79 M/mcL (4.19-5.50)
[2020-04-22 01:00] LABS: Eosinophils # 0.3 K/mcL (0.0-0.6); Eosinophils % 5.8 %; Hematocrit 26.2 % (37.5-50.1); Immature Granulocytes % 0.4 % (0-4); Immature Platelets 6.4 % (1.1-6.1); Lymphocytes # 0.5 K/mcL (0.6-4.6); Lymphocytes % 11.7 %; Mean Corpuscular HGB Conc 29.8 g/dL (31.6-35.5); Mean Corpuscular Volume 93.9 fL (83.0-100.0); Mean Platelet Volume 11.2 fL (9.4-12.4); Monocytes # 0.7 K/mcL (0.0-1.3); Monocytes % 15.3 %; Platelet Count 132 K/mcL (140-400); Red Cell Distribution Width 18.5 % (11.5-14.5); Segmented Neutrophils % 66.4 %; White Blood Count 4.5 K/mcL (4.3-11.1)
[2020-04-22 01:17] LABS: Calcium 9.2 mg/dL (8.6-10.3); Magnesium 1.8 mg/dL (1.6-2.6); Phosphorous 3.1 mg/dL (2.7-4.5); Potassium 3.5 mEq/L (3.5-5.1)
[2020-04-22 01:27] LABS: Anisocytosis 1+ (Not Present); Platelet Estimate Normal (Normal); Poikilocytosis 1+ (Not Present); Target Cells 1+ (Not Present)
[2020-04-22] MEDS: *HR* Heparin 5,000 UNIT/ML VIAL SQ SCH ×2 (04:46→14:12)
[2020-04-22] MEDS: Pantoprazole 40 MG VIAL IVP SCH ×2 (07:03→17:12)
[2020-04-22] MEDS ORDERED: *HR* Heparin 10,000 UNIT/10 ML VIAL IV PRN (07:30)
[2020-04-22] MEDS ORDERED: 0.9 % Sodium Chloride 1,000 ML PRIME SCH (07:30)
[2020-04-22] MEDS ORDERED: 0.9 % Sodium Chloride 250 ML IVC PRN (07:30)
[2020-04-22] MEDS: amLODIPine 5 MG TABLET GTUBE SCH (07:50)
[2020-04-22] MEDS: Metoprolol 100 MG TABLET GTUBE SCH ×2 (07:50→19:55)
[2020-04-22] MEDS: risperiDONE 0.25 MG TABLET GTUBE SCH ×2 (07:58→19:55)
[2020-04-22] MEDS: Aspirin 81 MG TAB.CHEW GTUBE SCH (07:58)
[2020-04-22] MEDS: Nystatin POWDER 30 GM BOTTLE TP SCH ×2 (07:58→19:57)
[2020-04-23] MEDS: Insulin LISPRO 300 UNITS/3 ML VIAL SUBQ SCH ×4 (00:21→17:24)
[2020-04-23] MEDS: Pantoprazole 40 MG VIAL IVP SCH ×2 (05:02→18:01)
[2020-04-23 05:23] LABS: Hematocrit 26.4 % (37.5-50.1); Hemoglobin 7.8 g/dL (12.9-16.9); Immature Platelets 6.5 % (1.1-6.1); Mean Corpuscular HGB Conc 29.5 g/dL (31.6-35.5); Mean Corpuscular Hemoglobin 27.9 pg (28.0-33.3); Mean Corpuscular Volume 94.3 fL (83.0-100.0); Mean Platelet Volume 11.1 fL (9.4-12.4); Red Blood Count 2.8 M/mcL (4.19-5.50); Red Cell Distribution Width 18.4 % (11.5-14.5); White Blood Count 4.1 K/mcL (4.3-11.1)
[2020-04-23 05:49] LABS: Albumin 3.6 g/dL (3.5-5.7); Albumin/Globulin Ratio 0.9 (1.1-2.2); Bilirubin,Direct 0.3 mg/dL (0.0-0.2); Bilirubin,Indirect 0.7 mg/dL (0.0-1.0); Magnesium 1.7 mg/dL (1.6-2.6); Phosphorous 2.3 mg/dL (2.7-4.5); Total Protein 7.6 g/dL (6.4-8.9)
[2020-04-23 05:51] LABS: Calcium 8.9 mg/dL (8.6-10.3); Potassium 3.6 mEq/L (3.5-5.1)
[2020-04-23 06:11] LABS: Folate 6.4 ng/mL (3.0-16.0)
[2020-04-23] MEDS ORDERED: *HR* Heparin 10,000 UNIT/10 ML VIAL IV PRN (07:18)
[2020-04-23] MEDS ORDERED: 0.9 % Sodium Chloride 250 ML IVC PRN (07:18)
[2020-04-23] MEDS ORDERED: Lidocaine/EPI 1:100k 1% 50 ML VIAL ONE (07:19)
[2020-04-23] MEDS ORDERED: Heparin 1,000 UNITS/500 mL 500 ML ONE (07:19)
[2020-04-23] MEDS ORDERED: 0.9 % Sodium Chloride 1,000 ML PRIME SCH (07:30)
[2020-04-23] MEDS ORDERED: 0.9 % Sodium Chloride 500 ML ONE (08:15)
[2020-04-23] MEDS ORDERED: *HR* Heparin 5,000 UNIT/ML VIAL ONE (08:43)
[2020-04-23] MEDS ORDERED: ceFAZolin 2,000 MG in Water for inj. (sterile) 20 ML IVP ONE (09:00)
[2020-04-23] MEDS: amLODIPine 5 MG TABLET GTUBE SCH (09:15)
[2020-04-23] MEDS: Aspirin 81 MG TAB.CHEW GTUBE SCH (09:15)
[2020-04-23] MEDS: risperiDONE 0.25 MG TABLET GTUBE SCH ×2 (09:15→22:38)
[2020-04-23] MEDS ORDERED: CeFAZolin 2,000 MG/50 ML BAG IVPB ONE (09:15)
[2020-04-23] MEDS: Metoprolol 100 MG TABLET GTUBE SCH ×2 (09:15→22:38)
[2020-04-23] MEDS: Nystatin POWDER 30 GM BOTTLE TP SCH ×2 (11:37→22:38)
[2020-04-23] MEDS ORDERED: Lidocaine -MPF 2% 5 ML VIAL SQ ONE (15:28)
[2020-04-23] MEDS ORDERED: *HR* Propofol 500 MG/50 ML BOTTLE IVP ONE (15:28)
[2020-04-24] MEDS: Insulin LISPRO 300 UNITS/3 ML VIAL SUBQ SCH ×4 (00:45→18:41)
[2020-04-24 04:11] LABS: Hematocrit 26.4 % (37.5-50.1); Mean Corpuscular Volume 97.1 fL (83.0-100.0); Red Blood Count 2.72 M/mcL (4.19-5.50)
[2020-04-24 04:13] LABS: Hemoglobin 7.8 g/dL (12.9-16.9); Immature Platelets 7.4 % (1.1-6.1); Mean Corpuscular HGB Conc 29.5 g/dL (31.6-35.5); Mean Corpuscular Hemoglobin 28.7 pg (28.0-33.3); Mean Platelet Volume 11.2 fL (9.4-12.4); Red Cell Distribution Width 18.4 % (11.5-14.5); White Blood Count 4.8 K/mcL (4.3-11.1)
[2020-04-24 04:28] LABS: Potassium 3.6 mEq/L (3.5-5.1)
[2020-04-24] MEDS: Pantoprazole 40 MG VIAL IVP SCH ×2 (05:32→18:55)
[2020-04-24] MEDS: amLODIPine 5 MG TABLET GTUBE SCH (07:32)
[2020-04-24] MEDS: risperiDONE 0.25 MG TABLET GTUBE SCH ×2 (07:32→20:14)
[2020-04-24] MEDS: Metoprolol 100 MG TABLET GTUBE SCH ×2 (07:32→20:14)
[2020-04-24] MEDS: Aspirin 81 MG TAB.CHEW GTUBE SCH (07:32)
[2020-04-24] MEDS: Nystatin POWDER 30 GM BOTTLE TP SCH ×2 (09:20→22:50)
[2020-04-25] MEDS: Insulin LISPRO 300 UNITS/3 ML VIAL SUBQ SCH ×4 (00:45→17:20)
[2020-04-25] MEDS: Pantoprazole 40 MG VIAL IVP SCH ×2 (05:50→16:47)
[2020-04-25 06:27] LABS: Calcium 9.3 mg/dL (8.6-10.3); Potassium 3.4 mEq/L (3.5-5.1)
[2020-04-25] MEDS: Aspirin 81 MG TAB.CHEW GTUBE SCH (08:31)
[2020-04-25] MEDS: Metoprolol 100 MG TABLET GTUBE SCH (08:31)
[2020-04-25] MEDS: amLODIPine 5 MG TABLET GTUBE SCH (08:31)
[2020-04-25] MEDS: risperiDONE 0.25 MG TABLET GTUBE SCH (08:31)
[2020-04-25] MEDS: Nystatin POWDER 30 GM BOTTLE TP SCH (08:46)
[2020-04-25] MEDS ORDERED: 0.9 % Sodium Chloride 250 ML IVC PRN (08:54)
[2020-04-25] MEDS ORDERED: *HR* Heparin 10,000 UNIT/10 ML VIAL IV PRN (08:54)
[2020-04-25] MEDS ORDERED: Haloperidol Lactate 5 MG/ML VIAL IVP ONE (15:32)
[2020-04-25] MEDS: *HR* LORazepam 2 MG/ML VIAL IVP PRN (16:47)
[2020-04-25] MEDS: Dexmedetomidine HCl 400 MCG/100 ML MLS IVC SCH ×2 (18:40→23:59)
[2020-04-26] MEDS: risperiDONE 0.25 MG TABLET GTUBE SCH ×3 (00:34→21:28)
[2020-04-26] MEDS: Metoprolol 100 MG TABLET GTUBE SCH ×3 (00:35→21:28)
[2020-04-26] MEDS: Insulin LISPRO 300 UNITS/3 ML VIAL SUBQ SCH ×4 (00:52→18:41)
[2020-04-26] MEDS: Nystatin POWDER 30 GM BOTTLE TP SCH ×3 (00:54→21:22)
[2020-04-26] MEDS: Dexmedetomidine HCl 400 MCG/100 ML MLS IVC SCH ×2 (04:35→11:57)
[2020-04-26 06:43] LABS: Basophils % 0.8 %; Eosinophils # 0.2 K/mcL (0.0-0.6); Eosinophils % 4.1 %; Hemoglobin 6.5 g/dL (12.9-16.9); Immature Granulocytes % 0.8 % (0-4); Lymphocytes # 0.5 K/mcL (0.6-4.6); Lymphocytes % 13.7 %; Mean Corpuscular HGB Conc 29.5 g/dL (31.6-35.5); Mean Corpuscular Hemoglobin 28.3 pg (28.0-33.3); Mean Corpuscular Volume 95.7 fL (83.0-100.0); Monocytes # 0.7 K/mcL (0.0-1.3); Monocytes % 17.3 %; Neutrophils # 2.5 K/mcL (1.6-8.9); Platelet Count 127 K/mcL (140-400); Red Cell Distribution Width 18.2 % (11.5-14.5); Segmented Neutrophils % 63.3 %; White Blood Count 3.9 K/mcL (4.3-11.1)
[2020-04-26 07:03] LABS: Calcium 8.9 mg/dL (8.6-10.3); Potassium 3.6 mEq/L (3.5-5.1)
[2020-04-26] MEDS ORDERED: 0.9 % Sodium Chloride 250 ML IVC SCH (07:45)
[2020-04-26] MEDS: Pantoprazole 40 MG VIAL IVP SCH ×2 (09:24→18:40)
[2020-04-26] MEDS: Aspirin 81 MG TAB.CHEW GTUBE SCH (09:25)
[2020-04-26] MEDS: amLODIPine 5 MG TABLET GTUBE SCH (09:25)
[2020-04-26] MEDS: *HR* LORazepam 2 MG/ML VIAL IVP PRN (11:54)
[2020-04-26] MEDS ORDERED: Lactulose Oral Soln 20 GM/30 ML UDC PO SCH (13:00)
[2020-04-26] MEDS: Lactulose Oral Soln 20 GM/30 ML UDC GTUBE SCH (21:28)
[2020-04-27] MEDS: Insulin LISPRO 300 UNITS/3 ML VIAL SUBQ SCH ×3 (00:49→12:39)
[2020-04-27 05:43] LABS: Basophils % 0.5 %; Eosinophils # 0.3 K/mcL (0.0-0.6); Eosinophils % 4.8 %; Hematocrit 25.9 % (37.5-50.1); Hemoglobin 7.7 g/dL (12.9-16.9); Immature Granulocytes % 0.5 % (0-4); Lymphocytes # 0.6 K/mcL (0.6-4.6); Lymphocytes % 10.2 %; Mean Corpuscular HGB Conc 29.7 g/dL (31.6-35.5); Mean Corpuscular Hemoglobin 29.3 pg (28.0-33.3); Mean Corpuscular Volume 98.5 fL (83.0-100.0); Mean Platelet Volume 12.1 fL (9.4-12.4); Monocytes # 0.9 K/mcL (0.0-1.3); Monocytes % 15.4 %; Neutrophils # 3.8 K/mcL (1.6-8.9); Platelet Count 154 K/mcL (140-400); Red Blood Count 2.63 M/mcL (4.19-5.50); Red Cell Distribution Width 17.9 % (11.5-14.5); Segmented Neutrophils % 68.6 %; White Blood Count 5.6 K/mcL (4.3-11.1)
[2020-04-27 06:03] LABS: Albumin 3.7 g/dL (3.5-5.7); Bilirubin,Direct 0.2 mg/dL (0.0-0.2); Bilirubin,Indirect 0.6 mg/dL (0.0-1.0); Bilirubin,Total 0.8 mg/dL (0.3-1.0); Calcium 9.2 mg/dL (8.6-10.3); Globulin 3.8 g/dL (2.4-3.5); Potassium 3.5 mEq/L (3.5-5.1); Total Protein 7.5 g/dL (6.4-8.9)
[2020-04-27 06:05] LABS: Magnesium 1.9 mg/dL (1.6-2.6); Phosphorous 2.5 mg/dL (2.7-4.5)
[2020-04-27] MEDS: Pantoprazole 40 MG VIAL IVP SCH (06:07)
[2020-04-27] MEDS: amLODIPine 5 MG TABLET GTUBE SCH (08:01)
[2020-04-27] MEDS: Lactulose Oral Soln 20 GM/30 ML UDC GTUBE SCH (08:02)
[2020-04-27] MEDS: risperiDONE 0.25 MG TABLET GTUBE SCH (08:02)
[2020-04-27] MEDS: Metoprolol 100 MG TABLET GTUBE SCH (08:02)
[2020-04-27] MEDS: Aspirin 81 MG TAB.CHEW GTUBE SCH (08:02)
[2020-04-27] MEDS: Nystatin POWDER 30 GM BOTTLE TP SCH (08:17)
[2020-04-27 15:06] VITALS: BP 128/67
== END 2020-04-27 17:54 | DRG 291 ==
LOC: EMEROOARM 17:51 → 2ANU 17:51 → SUATTDRO 20:24 → 2ANU 21:05 → SUATTDRO 03-22 10:23 → ICNU 03-28 03:51 → 2NNU 04-15 05:53 → 2ANU 04-24 16:55 → 2NNU 04-25 18:32
PROVIDERS: ADMIT Internal Medicine; ATTEND Pharmacist
PROC: IRPERMA (2020-04-23 08:00)